=== PATIENT | female | born 1945 | race Caucasian/White ===

== ENCOUNTER 2018-06-28 15:58 | Emergency (ER) | payer MEDICARE | END 2018-06-28 17:59 | disposition home or self-care (01) | LOC: M ED 15:58 | DX: L03.115 Cellulitis of right lower limb (principal); M71.21 Synovial cyst of popliteal space [Baker], right knee; M17.11 Unilateral primary osteoarthritis, right knee; Z86.73 Personal history of transient ischemic attack (TIA), and cerebral infarction without residual deficits; E78.00 Pure hypercholesterolemia, unspecified; I10 Essential (primary) hypertension; Z87.01 Personal history of pneumonia (recurrent); E11.9 Type 2 diabetes mellitus without complications; Z79.82 Long term (current) use of aspirin; Z79.84 Long term (current) use of oral hypoglycemic drugs; Z79.899 Other long term (current) drug therapy; Z88.8 Allergy status to other drugs, medicaments and biological substances; Z88.2 Allergy status to sulfonamides | CPT/HCPCS: 73564 ==

== ENCOUNTER 2018-10-01 09:33 | Day surgery (SDC) | payer MEDICARE ==
[~2018-10-01] VITALS: Ht 154.9 cm; Wt 54.4 kg
[~2018-10-01 09:33] MED LIST: ASPI81TA85 PO; ATEN25TA PO; CLIN150C14 PO; FERR1TAB8 PO; GLUC500T PO; IRON27TA2 PO; LEVO750T13 PO; LISI-542 PO; MOBI4TAB PO; NICO14DI3 TD; PRAV1TAB39 PO; TYLE500T78 PO; VITA100067 PO; VITATAB11 PO
[2018-10-01] MEDS ORDERED: PROPOFOL 200 MG/20 ML VIAL As Ordered ONE (10:28)
[2018-10-01] MEDS ORDERED: LIDOCAINE 2% INJ 100 MG/5 ML SDV (FOR ANES.) As Ordered ONE (11:21)
[2018-10-01] MEDS ORDERED: fentaNYL 100 MCG/2 ML INJECTION (J3010) As Ordered ONE (11:21)
--- NOTE | 2018-10-01 11:52 | ROOR ---
Patient Name: Sherita Michel Procedure Date: 10/01/2018 11:35 AM Date of : 1945 Age: 72 Room: [facility] Gender: Female Note Status: Finalized Procedure: Upper Endoscopy + Biopsies Indications: Functional Dyspepsia Providers: Dick Macdonald MD Referring MD: SIMI MAK DO Requesting Provider: Medicines: Monitored Anesthesia Care Complications: No immediate complications. Procedure: Pre-Anesthesia Assessment: - The heart rate, respiratory rate, oxygen saturations, blood pressure, adequacy of pulmonary ventilation, and response to care were monitored throughout the procedure. The Endoscope was introduced through the mouth, and advanced to the second part of duodenum. The upper GI endoscopy was accomplished without difficulty. The patient tolerated the procedure well. Findings: The Z-line was variable and was found 35 cm from the incisors. Multiple biopsies were obtained with cold forceps for evaluation to rule out Saul's Esophagus randomly at the gastroesophageal junction. No other significant abnormalities were identified in a careful examination of the stomach. The exam of the duodenum was otherwise normal. Impression: - Z-line variable, 35 cm from the incisors. - Multiple biopsies were obtained at the gastroesophageal junction. - The examination was otherwise normal. Recommendation: - Patient has a contact number available for emergencies. The signs and symptoms of potential delayed complications were discussed with the patient. Return to normal activities tomorrow. Written discharge instructions were provided to the patient. - High fiber diet. - Discharge patient to home. - Follow an antireflux regimen. - Continue present medications. - Await pathology results. - Telephone GI clinic for pathology results in 1 week. - Return to referring physician. - The findings and recommendations were discussed with the patient's family. Dick Macdonald MD Dick Macdonald MD 10/01/2018 11:52:23 AM This report has been signed electronically. Number of Addenda: 0 Note Initiated On: 10/01/2018 11:35 AM Estimated Blood Loss: Estimated blood loss: none.
--- NOTE | 2018-10-01 12:08 | ROOR ---
Patient Name: Sherita Michel Procedure Date: 10/01/2018 11:36 AM Date of : 1945 Age: 72 Room: [facility] Gender: Female Note Status: Finalized Procedure: Total Colonoscopy to Cecum Indications: Iron deficiency anemia Providers: Dick Macdonald MD Referring MD: SIMI MAK DO Requesting Provider: Medicines: Monitored Anesthesia Care Complications: No immediate complications. Procedure: Pre-Anesthesia Assessment: - The heart rate, respiratory rate, oxygen saturations, blood pressure, adequacy of pulmonary ventilation, and response to care were monitored throughout the procedure. The Colonoscope was introduced through the anus and advanced to the cecum, identified by appendiceal orifice and ileocecal valve. The colonoscopy was performed without difficulty. The patient tolerated the procedure well. The quality of the bowel preparation was excellent. Findings: The perianal and digital rectal examinations were normal. Non-bleeding internal hemorrhoids were found during retroflexion. The hemorrhoids were small and Grade I (internal hemorrhoids that do not prolapse). Multiple small and large-mouthed diverticula were found in the recto-sigmoid colon, sigmoid colon and descending colon. The exam was otherwise without abnormality on direct and retroflexion views. Impression: - Non-bleeding internal hemorrhoids. - Diverticulosis in the recto-sigmoid colon, in the sigmoid colon and in the descending colon. - The examination was otherwise normal on direct and retroflexion views. - No specimens collected. - The exam was otherwise normal to the cecum. Recommendation: - Patient has a contact number available for emergencies. The signs and symptoms of potential delayed complications were discussed with the patient. Return to normal activities tomorrow. Written discharge instructions were provided to the patient. - High fiber diet. - Discharge patient to home. - Continue present medications. - Repeat colonoscopy for symptoms only. - Return to referring physician. - The findings and recommendations were discussed with the patient's family. Dick Macdonald MD Dick Macdonald MD 10/01/2018 12:07:45 PM This report has been signed electronically. Number of Addenda: 0 Note Initiated On: 10/01/2018 11:36 AM Estimated Blood Loss: Estimated blood loss: none.
[2018-10-01 12:17] VITALS: BP 116/59
== END 2018-10-01 12:45 | disposition home or self-care (01) ==
LOC: M OPP 09:33
PROVIDERS: ATTEND Internal Medicine Gastroenterology
DX: D50.9 Iron deficiency anemia, unspecified (principal); K30 Functional dyspepsia; K64.0 First degree hemorrhoids; K57.30 Diverticulosis of large intestine without perforation or abscess without bleeding; K22.8 Other specified diseases of esophagus; E11.9 Type 2 diabetes mellitus without complications; Z88.1 Allergy status to other antibiotic agents; Z88.2 Allergy status to sulfonamides; Z79.82 Long term (current) use of aspirin; Z79.84 Long term (current) use of oral hypoglycemic drugs; Z79.899 Other long term (current) drug therapy; Z87.891 Personal history of nicotine dependence
CPT/HCPCS: 43239; 45378; 88305; J3010

== ENCOUNTER → 2019-03-07 | Outpatient (REF) | payer MEDICARE ==
[~2019-03-07] MED LIST changes: +ACET500T15 PO; +B-12100011 SL; +CLAR500T PO; +HYDR12CA PO; +LISI-538 PO; +METR-265 PO; +OMEP-218 PO; +RA B1TAB7 PO; +VITAD1000T PO
== END ==
LOC: M LAB REF 14:09
PROVIDERS: ATTEND Internal Medicine Hematology & Oncology
DX: D50.9 Iron deficiency anemia, unspecified (principal)

== ENCOUNTER → 2020-01-22 | Outpatient (CLI) | payer MEDICARE ==
[~2020-01-22] MED LIST changes: +CHOL100029 PO; -CLAR500T PO; +CLAR500T97 PO; -VITAD1000T PO
== END ==
LOC: M LABSMTC 10:22
PROVIDERS: ATTEND Pediatrics
DX: Z03.818 Encounter for observation for suspected exposure to other biological agents ruled out (principal); Z11.59 Encounter for screening for other viral diseases

== ENCOUNTER → 2020-04-30 | Outpatient (CLI) | payer SELFPAY ==
[~2020-04-30] MED LIST changes: -ASPI81TA85 PO; +ASPI81TA86 PO
== END ==
LOC: M LABSMTC 13:56
PROVIDERS: ATTEND Pediatrics
DX: Z20.828 Contact with and (suspected) exposure to other viral communicable diseases (principal)

== ENCOUNTER → 2020-09-12 | Outpatient (CLI) | payer MEDICARE ==
[~2020-09-12] MED LIST changes: +ASPI81TA26 PO; -CLIN150C14 PO; +CLIN150C15 PO; +CRAN400C PO; +CYAN500T14 PO; +D31000TA2 PO; +PRAV10TA3 PO
== END ==
LOC: M LABSMTC 08:07
PROVIDERS: ATTEND Anesthesiology
DX: Z01.812 Encounter for preprocedural laboratory examination (principal); Z20.822 Contact with and (suspected) exposure to COVID-19

== ENCOUNTER 2020-09-17 07:11 | Day surgery (SDC) | payer MEDICARE ==
[~2020-09-17] VITALS: Ht 152.4 cm; Wt 59.9 kg
[~2020-09-17 07:11] MED LIST changes: +BSS IRR 500ML/OMIDRIA 4ML IRR BAG (OR ONLY) As Ordered ONE; +CEFUROXIME 1MG/0.1ML INTRACAMERAL INJ As Ordered ONE; +DUOVISC (0.50ML VISCOAT/0.55ML PROVISC) OPHTH KIT As Ordered ONE; -LISI-538 PO; -LISI-542 PO; +LISI-898 PO; +LISI20TA33 PO; +MIDAZOLAM INJ 2MG/2ML VIAL (J2250 PER 1MG) As Ordered ONE; +OFLOXACIN 0.3 % (OCUFLOX) OPTH SOL 5ML OS ONE; +PHENYLEPHRINE 2.5% OPHTH SOL 2ML OS ONE; +POVIDONE-IODINE 5% OPHTH PREP SOL 30ML As Ordered ONE; +PROPARACAINE 0.5% OPHTH SOL 15ML OS ONE; +TROPICAMIDE 1% OPHTH SOLN 2ML OS ONE; +fentaNYL 100 MCG/2 ML INJECTION (J3010) As Ordered ONE
[2020-09-17] MEDS ORDERED: ONDANSETRON 4MG/2ML VIAL As Ordered ONE (09:06)
[2020-09-17 10:00] VITALS: BP 164/74
[2020-09-17] MEDS ORDERED: PROPARACAINE 0.5% OPHTH SOL 15ML OS PRN (10:30)
--- NOTE | 2020-09-18 10:21 | RO ---
OPERATIVE NOTE DATE OF OPERATION: 09/17/2020 PREOPERATIVE DIAGNOSES: 1. Visually significant nuclear sclerotic cataract, left eye. 2. Small pupil, left eye. POSTOPERATIVE DIAGNOSES: 1. Visually significant nuclear sclerotic cataract, left eye. 2. Small pupil, left eye. PROCEDURE: Complex cataract extraction with use of phacoemulsification, and placement of intraocular lens, AU00T0, 25.5 D , left eye with use of iRing. ANESTHESIA: Local (Omidria) with MAC. COMPLICATIONS: None. POSTOPERATIVE CONDITION: Postoperative Condition: Stable. INDICATION FOR SURGERY: Blurred vision affecting patient's activities of daily living. DESCRIPTION OF PROCEDURE: The patient was seen in the preoperative area and properly identified. The correct operative eye was identified and marked. The patient received topical anesthetic, antibiotics, and topical dilating drops. The patient was then transferred to the operating room. The correct side was re-identified and a timeout was performed. The eye was prepped and draped in a sterile fashion. The eyelids were isolated with Tegaderm tape and the lids were held open with an adjustable speculum. A 1.0mm paracentesis incision was made. Omidria was injected into the anterior chamber. Viscoelastic was then injected into the anterior chamber through the paracentesis. Using a 2.4mm sharp-tipped keratome, the anterior chamber was entered via a temporal clear cornea incision. An iRing was placed within the eye, and positioned onto the iris to expand the pupil. A continuous curvilinear capsulorhexis was created with Utrata forceps. Hydrodissection was performed with BSS on a blunt cannula until the nucleus was able to rotate freely. The crystalline lens was phacoemulsified and aspirated. Irrigation/aspiration was used to remove the cortical material Cohesive viscoelastic was placed into the capsular bag to deepen it. The implant was placed into the capsular bag and allowed to unfold. Placement was confirmed by visualizing the anterior capsulorhexis. Irrigation/aspiration was used to remove the viscoelastic. The iRing was removed from the eye. The clear corneal incision was hydrated with BSS on a blunt cannula. The lens was well positioned. Cefuroxime was injected into the anterior chamber. The incisions were then tested for leaks and found to be negative. The eye was then palpated for appropriate pressure and adjusted accordingly with BSS. The eyelid speculum was then carefully removed. A shield was placed over the eye. The patient tolerated the procedure well and was discharge to the recovery unit in a stable condition.
== END 2020-09-17 10:23 | disposition home or self-care (01) ==
LOC: M SDC 07:11
PROVIDERS: ATTEND Ophthalmology
DX: H25.12 Age-related nuclear cataract, left eye (principal); H57.03 Miosis; I10 Essential (primary) hypertension; E11.9 Type 2 diabetes mellitus without complications; E78.5 Hyperlipidemia, unspecified; G47.00 Insomnia, unspecified; F41.9 Anxiety disorder, unspecified; I69.998 Other sequelae following unspecified cerebrovascular disease; T88.59XD Other complications of anesthesia, subsequent encounter; Z78.0 Asymptomatic menopausal state; Z79.82 Long term (current) use of aspirin; Z79.899 Other long term (current) drug therapy; Z86.2 Personal history of diseases of the blood and blood-forming organs and certain disorders involving the immune mechanism; Z87.440 Personal history of urinary (tract) infections; Z87.891 Personal history of nicotine dependence; Z88.1 Allergy status to other antibiotic agents; Z88.2 Allergy status to sulfonamides; Z98.51 Tubal ligation status
CPT/HCPCS: 66982; J1097; J2250; J2405; J3010; V2632

== ENCOUNTER → 2020-09-23 | Outpatient (CLI) | payer MEDICARE ==
[~2020-09-23] MED LIST changes: -BSS IRR 500ML/OMIDRIA 4ML IRR BAG (OR ONLY) As Ordered ONE; -CEFUROXIME 1MG/0.1ML INTRACAMERAL INJ As Ordered ONE; -DUOVISC (0.50ML VISCOAT/0.55ML PROVISC) OPHTH KIT As Ordered ONE; -MIDAZOLAM INJ 2MG/2ML VIAL (J2250 PER 1MG) As Ordered ONE; -OFLOXACIN 0.3 % (OCUFLOX) OPTH SOL 5ML OS ONE; -PHENYLEPHRINE 2.5% OPHTH SOL 2ML OS ONE; -POVIDONE-IODINE 5% OPHTH PREP SOL 30ML As Ordered ONE; -PROPARACAINE 0.5% OPHTH SOL 15ML OS ONE; -TROPICAMIDE 1% OPHTH SOLN 2ML OS ONE; -fentaNYL 100 MCG/2 ML INJECTION (J3010) As Ordered ONE
== END ==
LOC: M LABSMTC 13:23
PROVIDERS: ATTEND Anesthesiology
DX: Z01.812 Encounter for preprocedural laboratory examination (principal); Z20.822 Contact with and (suspected) exposure to COVID-19

== ENCOUNTER 2020-09-24 07:27 | Day surgery (SDC) | payer MEDICARE ==
[~2020-09-24] VITALS: Ht 152.4 cm; Wt 59.0 kg
[~2020-09-24 07:27] MED LIST changes: +ACETAMINOPHEN 325 MG TAB PO PRN; +CEFUROXIME 1MG/0.1ML INTRACAMERAL INJ As Ordered ONE; +DUOVISC (0.50ML VISCOAT/0.55ML PROVISC) OPHTH KIT As Ordered ONE; +MIDAZOLAM INJ 2MG/2ML VIAL (J2250 PER 1MG) As Ordered ONE; +OFLOXACIN 0.3 % (OCUFLOX) OPTH SOL 5ML OD ONE; +PHENYLEPHRINE 2.5% OPHTH SOL 2ML OD ONE; +POVIDONE-IODINE 5% OPHTH PREP SOL 30ML As Ordered ONE; +PROPARACAINE 0.5% OPHTH SOL 15ML OD ONE; +PROPARACAINE 0.5% OPHTH SOL 15ML OD PRN; +TROPICAMIDE 1% OPHTH SOLN 2ML OD ONE; +fentaNYL 100 MCG/2 ML INJECTION (J3010) As Ordered ONE
--- OUTSIDE RECORDS SUMMARY | 2020-09-24 07:31 | CCD ---
Author Author Demetris Ware MD [facility] Organization Demetris Ware MD [facility] Address [address] [address] Phone Care Team Providers Care Car Sander Name Role Phone Jeanie ALANIZ, Demetris HINKLE Unavailable [phone] Reason for Referral No Reason for Referral Recorded Problems Includes: Active, inactive, and resolved Problems All Visits Onset Date - Time Resolved Date - Time Provider Co ndition Status Adhesions of Iris Posterior Synechiae 07/20/2020 - 12:00AM Christian Macdonald DO Active Taking Medication For Diabetes Long-term Use of Oral H ypoglycemics 06/22/2020 - 12:00AM Demetris Ware MD, FACS Active Diabetes Mellitus Type 2 Without Complication 06/22/2020 - 12:00 AM Demetris Ware MD, FACS Active History of Nicotine Dependence 06/22/2020 - 12:00AM Demetris Ware MD, FACS Active Essential Hypertension 06/22/2020 - 12:00AM Demetris Hamilotn MD, FACS Active Retinopathy Hypertensive Both Eyes 06/22/2020 - 12:00AM Demetris Ware MD, FACS Active Cataract Senile Nuclear 06/22/2020 - 12:00AM Demetris Ware MD, FACS Active Dry Eye Syndrome Both Eyes 06/22/2020 - 12:00AM Demetris Ware MD, FACS Active Vitreous Disorders Degeneration 06/22/2020 - 12:00AM Demetris Ware MD, FACS Active Plan of Treatment Referrals To Diagnosis Referral to Dr. Renae Ware MD, FACS Type 2 diabetes mellitus without complications Future Appointments Date Time Location Provider Extracapsular cataract removal w/IOL implant 09/24/2020 8:2 0AM [facility] Christian Macdonald DO 1 Week Post OP 10/02/2020 12:40PM Demetris Ware MD [facility] Angel Macdonald DO Findings Encounter Date Requested Referred to: Dr. Macdonald NEW PATIENT WITH REFERRAL with Demetris Ware MD, FACS 06/22/2020 Assessments Includes: Assessments for all patient encounters Findings Encounter Date Nuclear senile cataract POST OP VISIT WITH PRE-OP with Tim Macdonald DO 09/18/2020 Pseudophakia POST OP VISIT WITH PRE-OP with Christian benitez DO 09/18/2020 Nuclear senile cataract 1 WK PREOP FOR SURGERY with Christian Macdonald DO 09/04/2020 Adhesions of the posterior synechiae of the iris Catar act Evaluation with Christian Macdonald DO 07/20/2020 Dry eye syndrome of both eyes Cataract Evaluation with Tim Macdonald DO 07/20/2020 Long-term use of oral hypoglycemics Cataract Evaluatio n with Christian Macdonald DO 07/20/2020 Nuclear senile cataract Cataract Evaluation with Christian haynes DO 07/20/2020 Type 2 diabetes mellitus without complication Cataract Evaluation with Christian Macdonald DO 07/20/2020 Vitreous degeneration Cataract Evaluation with Christian may DO 07/20/2020 Dry eye syndrome of both eyes NEW PATIENT WITH REFERRA L with Demetris Ware MD, FACS 06/22/2020 Essential hypertension NEW PATIENT WITH REFERRAL [facility] Demetris Ware MD, FACS 06/22/2020 History of nicotine dependence NEW PATIENT WITH REFERR AL with Demetris Raymundo MD, FACS 06/22/2020 Long-term use of oral hypoglycemics NEW PATIENT WITH R EFERRAL with Demetris Ware MD, FACS 06/22/2020 Nuclear senile cataract NEW PATIENT WITH REFERRAL [facility] Demetris Ware MD, FACS 06/22/2020 Type 2 diabetes mellitus without complication NEW PRIETO ENT WITH REFERRAL with Demetris Ware MD, FACS 06/22/2020 Vitreous degeneration NEW PATIENT WITH REFERRAL [facility] Demetris Ware MD, FACS 06/22/2020 Instructions Instructions not supported for this document typeNo Instructions Recorded Medical Equipment - Implanted Devices Includes: Current and historical DevicesNo Medical Equipment Recorded Medications Includes: Current and historical Medications Current Medications (continue as prescribed) Moxifloxacin HCl 0.5% Ophthalmic Solution 09/04/2020 Provider: Christian Macdonald DO Diagnosis: Age-related nuclear cataract, left eye Three days prior to surgery start one drop four times a day in the left eye BromSite 0.075% Ophthalmic Solution 09/04/2020 Prov ider: Christian Renae ARROYO Diagnosis: Age-related nuclear cataract, left eye Three days prior to surgery start one dr op two times a day in the left eye, RUN CARD. SEE PHARM NOTES Inveltys 1% Ophthalmic Suspension 09/04/2020 Provid er: Christian Macdonald Diagnosis: Age-related nuclear cataract, left eye Day of surgery remove patch start one dr op two times a day in the left eye, RUN CARD. SEE PHARM NOTES metFORMIN HCl 500 MG Oral Tablet 06/22/2020 Provide r: Diagnosis: Lisinopril 40 MG Oral Tablet 06/22/2020 Provider: Diagnosis: Atenolol 25 MG Oral Tablet 06/22/2020 Provider: Diagnosis: Pravastatin Sodium 10 MG Oral Tablet 06/22/2020 Pro vider: Diagnosis: Adult Aspirin Regimen 81 MG Oral Tablet Delayed Release 04/2020 Provider: Diagnosis: Vitamin B12 500 MCG Oral Tablet 06/22/2020 Provider : Diagnosis: Vitamin D3 1000 MG Oral Tablet 06/22/2020 Provider: Diagnosis: Medications Administered Includes: Administered Medications in patient's chartNo Administered Medications Recorded Vital Signs Includes: Vital Signs from 09/18/2019 through 09/18/2020No Vital Signs Recorded For Specified Dates Results Includes: Results from 09/18/2019 through 09/18/2020No Results Recorded For Specified Dates History of Present Illness History of Present Illness not supported for this document typeNo History of Present Illness Recorded Social History Description Last Updated No tobacco use 07/20/2020 Not using drugs 07/20/2020 Previous smoking history 07/20/2020 Smoking status : Former smoker 07/20/2020 Wine consumption 07/20/2020 Procedures and Surgical History Includes: Procedures from 09/18/2019 through 09/18/2020 Procedures Code Diagnosis Performing Provider Service Location Service Date Ophthalmic biometry - IOL Master with IOL calculation (RT, 2 6) 56831 Age-related nuclear cataract, right eye Christian Macdonald DO 09/18/2020 Intermediate Eye Exam Established Patient (Signi/Sep Eval. 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, Dry eye syndrome of bilateral lacrimal glands, Age-related nuclear cataract, bilateral Demetris Ware MD, FACS Demetris Ware MD [facility] 06/22/2020 Surgical History Last Updated Surgical / procedural history Termination 1984, Tubal Ligation 1984, Fatty Tumor removal 2017, 07/20/2020 Medical History Includes: Medical History in patient's chart Description Last Updated History of the retina was normal 06/22/2020 07/20/2020 Reported medical history Osteochondropathy, Anxiety, Insomnia 07/20/2020 History of hyperlipidemia 07/20/2020 No recent change in medical history 07/20/2020 Currently wearing eyeglasses 07/20/2020 History of diabetes mellitus Type II Di abetes DX: 2012. A1c:6.5 FBS: 127 this morning 07/20/2020 History of hypertension 07/20/2020 Family History Includes: Family History in patient's chart Description Last Updated Maternal history of arthritis 07/20/2020 Maternal history of blindness 07/20/2020 Maternal history of cataract 07/20/2020 Maternal history of diabetes mellitus 07/20/2020 Maternal history of family history of cancer 0 Maternal history of glaucoma 07/20/2020 Maternal history of heart disease 07/20/2020 Maternal history of hypertension 07/20/2020 Maternal history of macular degeneration 07/20/2020 Sororal history of hypertension 07/20/2020 Review of Systems Review of Systems not supported for this document typeNo Review of Systems Recorded Mental Status Mental Status not supported for this document type Description Oriented to time, place, and person Anxiety Functional Status Functional Status not supported for this document typeNo Functional Status Recorded Physical Exam Physical Exam not supported for this document typeNo Physical Exam Recorded Immunizations Includes: Immunizations in patient's chartNo Immunizations Recorded Allergies Includes: Active, inactive, and resolved Allergies Substance Type Reaction Onset Date - Time Resolved Date - Ti me Status Sulfa Antibiotics Allergy 06/22/2020 - 1:39PM Active Levaquin Allergy 06/22/2020 - 1:39PM Activ e Clindamycin HCl Allergy 06/22/2020 - 1:40PM Active Encounters Includes: Encounters from 09/18/2019 through 09/18/2020 Encounter Provider Location Date Check-In Time Check-Out Time D iagnosis POST OP VISIT WITH PRE-OP Christian Pitt MD [facility] 09/18/2020 12:32PM 09/17/2020 11:59PM Cataract Senile Nucl ear, Pseudophakia Extracapsular cataract removal w/IOL implant Christian Gonzalez in DO [facility] 09/17/2020 7:03AM 7:04AM 1 WK PREOP FOR SURGERY Christian Pitt MD [facility] 09/04/2020 12:27PM 1:36PM Cataract Senile Nuclear Cataract Evaluation Christian Pitt MD [facility] 1 09/20/2019 1:57PM 3:49PM Dry Eye Syndrome Both Eyes, Vitreous Disorders Degeneration, Diabetes Mellitus Type 2 Without Complication, Taking Medication For Diabetes Long-term Use of Oral Hypoglycemics, Cataract Senile Nuclear, Adhesions of Iris Posterior Synechiae NEW PATIENT WITH REFERRAL Demetris Ware MD, FACS Demetris Santana MD [facility] 06/22/2020 1:33PM 3:03PM Taking Medication Fo r Diabetes Long-term Use of Oral Hypoglycemics, Diabetes Mellitus Type 2 Without Complication, Cataract Senile Nuclear, Dry Eye Syndrome Both Eyes, Essential Hypertension, Vitreous Disorders Degeneration, History of Nicotine Dependence Insurance Includes: Active Insurance Policies Plan Name Member ID Group # Subscriber Relationship Effective Da karen 1 - [employer] [id number] Sherita Michel Self Advance Directives Includes: Current Advance DirectivesNo Advance Directives Recorded Health Concerns Includes: Active Health ConcernsNo Active Health Concerns Recorded Goals Includes: Active GoalsNo Active Goals Recorded Interventions Includes: Interventions for active GoalsNo Interventions Recorded Evaluations & Outcomes Includes: Evaluations & Outcomes for active GoalsNo Outcomes Recorded
--- OUTSIDE RECORDS SUMMARY | 2020-09-24 07:32 | CCD ---
Author Author Demetris Ware MD [facility] Organization Demetris Ware MD [facility] Address [address] [address] Phone Care Team Providers Care Agricultural Aircraft Pilot Name Role Phone Jeanie ALANIZ, Demetris HINKLE Unavailable [phone] Reason for Referral No Reason for Referral [...] Active Essential Hypertension 06/22/2020 - 12:00AM Demetris Hamilton MD, FACS Active Retinopathy Hypertensive Both Eyes 06/22/2020 - 12:00AM Demetris Ware MD, FACS Active Cataract Senile Nuclear 06/22/2020 - 12:00AM Demetris Ware MD, FACS Active Dry Eye Syndrome Both Eyes 06/22/2020 - 12:00AM Demetris Ware MD, FACS Active Vitreous Disorders Degeneration 06/22/2020 - 12:00AM Demetris Ware MD, FACS Active Plan of Treatment Pending Tests Order Diagnosis Results Due Ordering Provi antoine Testing Ordered - AScan A-Scan IOL Master Age-related nucl ear cataract, bilateral 09/18/20 Christian Macdonald DO Referrals To Diagnosis Referral to Dr. Renae Ware MD, FACS Type 2 diabetes mellitus without complications Findings Encounter Date Requested Referred to: Dr. Macdonald NEW PATIENT WITH REFERRAL with Demetris aWre MD, FACS 06/22/2020 Assessments Includes: Assessments for all patient encounters Findings Encounter Date Adhesions of the posterior synechiae of the iris Catar act Evaluation with Christian Macdonald DO 07/20/2020 Dry eye syndrome of both eyes Cataract Evaluation with Tim tiana Renae DO 07/20/2020 Long-term use of oral hypoglycemics Cataract Evaluatio n with Christian Macdonald DO 07/20/2020 Nuclear senile cataract Cataract Evaluation with Christian haynes DO 07/20/2020 Type 2 diabetes mellitus without complication Cataract Evaluation with Christian Macdonald DO 07/20/2020 Vitreous degeneration Cataract Evaluation with Christian amy DO 07/20/2020 Dry eye syndrome of both eyes NEW PATIENT WITH REFERRA L with Demetris Ware MD, FACS 06/22/2020 Essential hypertension NEW PATIENT WITH REFERRAL [facility] Demetris Ware MD, FACS 06/22/2020 History of nicotine dependence NEW PATIENT WITH REFERR AL with Demetris Raymundo MD, FACS 06/22/2020 Long-term use of oral hypoglycemics NEW PATIENT WITH R EFERRAL with Demetris Ware MD, FACS 06/22/2020 Nuclear senile cataract NEW PATIENT WITH REFERRAL [facility] Demetris Ware MD, FACS 06/22/2020 Type 2 diabetes mellitus without complication NEW PRIETO ENT WITH REFERRAL with Demetris Ware MD, FACS 06/22/2020 Vitreous degeneration NEW PATIENT WITH REFERRAL [facility] Demetris Ware MD, FACS 06/22/2020 Instructions Instructions not supported for this document typeNo Instructions Recorded Medical Equipment - Implanted Devices Includes: Current and historical DevicesNo Medical Equipment Recorded Medications Includes: Current and historical Medications Current Medications (continue as prescribed) metFORMIN HCl 500 MG Oral Tablet 06/22/2020 [...] Recorded Vital Signs Includes: Vital Signs from 07/20/2019 through 07/20/2020No Vital Signs Recorded For Specified Dates Results Includes: Results from 07/20/2019 through 07/20/2020No Results Recorded For Specified Dates History of Present Illness History of Present Illness not supported for this document typeNo History of Present Illness Recorded Social History Description Last Updated No tobacco use 07/20/2020 Not using drugs 07/20/2020 Previous smoking history 07/20/2020 Smoking status : Former smoker 07/20/2020 Wine consumption 07/20/2020 Procedures and Surgical History Includes: Procedures from 07/20/2019 through 07/20/2020 Procedures Code Diagnosis Performing Provider Service Location Service Date Intermediate Eye Exam Established Patient [id number] Age-related nuclear cataract, bilateral, ADHESIONS OF IRIS POSTERIOR SYNECHIAE Christian Macdonald DO 07/20/2020 Medical Eye Exam 19779 Type 2 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, 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, Dry eye syndrome of bilateral lacrimal glands, Age-related nuclear cataract, bilateral Demetris Ware MD, FACS Demetris Ware MD [facility] 06/22/2020 Surgical History Last Updated Surgical [...] Description Oriented to time, place, and person Difficulty reading Anxiety Functional Status Functional Status not supported [...] - 1:40PM Active Encounters Includes: Encounters from 07/20/2019 through 07/20/2020 Encounter Provider Location Date Check-In Time Check-Out Time D iagnosis Cataract Evaluation Christian Pitt MD [facility] 1 09/20/2019 1:57PM 3:49PM Dry Eye Syndrome Both Eyes, Vitreous Disorders Degeneration, Diabetes Mellitus Type 2 Without Complication, Taking Medication For Diabetes Long-term Use of Oral Hypoglycemics, Cataract Senile Nuclear, Adhesions of Iris Posterior Synechiae NEW PATIENT WITH REFERRAL Demetris Ware MD, FACS Demetris Santana MD [facility] 06/22/2020 1:33PM 3:03PM Taking Medication Fo r Diabetes Long-term Use of Oral Hypoglycemics, Diabetes Mellitus Type 2 Without Complication, Cataract Senile Nuclear, Dry Eye Syndrome Both Eyes, Essential Hypertension, Vitreous Disorders Degeneration, History of Nicotine Dependence Insurance Includes: Active Insurance Policies Plan Name Member ID Group # Subscriber Relationship Effective Da karen 1 - [employer] [id number] Sherita Michel Self Advance Directives Includes: Current Advance DirectivesNo Advance Directives Recorded Health Concerns Includes: Active Health ConcernsNo Active Health Concerns Recorded Goals Includes: Active GoalsNo Active Goals Recorded Interventions Includes: Interventions for active GoalsNo Interventions Recorded Evaluations & Outcomes Includes: Evaluations & Outcomes for active GoalsNo Outcomes Recorded
--- OUTSIDE RECORDS SUMMARY | 2020-09-24 07:32 | CCD | Continuity of Care Document ---
Author Author Sherita MAK D.O. Organization Unknown Address 3 [facility] 3 [place] [address] Phone [phone] Problems Active Problems Provider Date Benign essential hypertension Aidan Mak D.O., SHARRI O nset: 07/18/2011 Vitamin D deficiency Aidan Mak D.O., LOISFP Onset: 12/2010 Hyperlipidemia Aidan Mak D.O., SHARRI Onset: 09/2011 Type 2 diabetes mellitus Aidan Mak D.O., LOISFP Onset: 02/21/2012 Osteochondropathy Aidan Mak D.O., FAAFP Onset: 03/2013 Essential hypertension Aidan Mak D.O., FAAFP Onset: 1 10/04/2014 Type 2 diabetes mellitus Aidan Mak D.O., FAAFP Onset: 06/09/2020 Social History Type Date Description Comments Sex Unknown ETOH Use Drinks 1 wine or 1 Beer per day Recreational Drug Use Denies Drug Use Tobacco Use Start: Unknown End: Unknown Patient is a former smoker Quit 2013 Smoking Status Reviewed: 09/08/20 Patient is a former smoker Qu it 2014 Allergies, Adverse Reactions, Alerts Active Allergies Reaction Severity Comments Date Sulfa Drugs itching Moderate itching all over her body Levaquin Urticaria Moderate rash over entire body 2013 Clindamycin SOB Moderate not tolerated, s hortness of breath shortly after taking. 07/03/2018 Medications Active Medications SIG Qnty Indications Ordering Provide r Date Pravastatin Sodium 10mg Tablets 1 by mouth every day 90tabs Aidan Mak D.O., FAAFP Metformin HCL 500mg Tablets 1 by mouth twice every day 180tabs [facility] Ultra 2 w/Device Kit test blood sugar every day dx e11.9 1units E11.9 [facility] 04/08/2019 Lisinopril 40mg Tablets 1 by mouth every day 90tabs [facility] Vitamin C 500mg Tablets 1 by mouth daily with a meal 100tabs [facility] Atenolol 25mg Tablets take one tablet by mouth every day 90tabs [facility] 07/2018 Onetouch Delica Lancets Extra Fine 33G Misc Use To Check Glucose Twice Daily And as Needed 200units E11.9 [facility] 11/10/2015 Onetouch Ultra Blue Strips Test Twice Daily 200units [facility] One Touch Test Strips test blood glucose twice a day 200units E 11.9 Daiana Watson, [facility]- 04/17/2013 Vit D 2000 Capsules 1 qd 100caps [facility] 11/14/[address] 1 by mouth every day OTC Unknown Vitamin B-12 500mcg Tablets Sub 1 by mouth every day Unknown History Medications Doxycycline Hyclate 100mg Tablets 1 by mouth twice a day x 10 days 20tabs Josemanuel Arvizu, FAAFP 05/20/2020 - 05/20/2020 Cephalexin 500mg Capsules 1 tab by mouth three times a day for 10 days 30caps [facility] 05/20/2020 - 06/09/2020 Keflex 500mg Capsules 1 by mouth three times a day x 7 days 21caps Aidan Mak D.O., [facility] 04/06/2020 - 05/20/2020 Medications Administered in Office Medication SIG Qnty Indications Ordering Provider Date Injection (SC)/(Im) Injection Aidan Mak D.O., [facility] 05/22/2012 Injection (SC)/(Im) Injection Adian Mak D.O., [facility] 08/02/2011 Injection (SC)/(Im) Injection Aidan Mak D.O., [facility] 07/18/2011 Immunizations CPT Code Status Date Vaccine Lot # [id number] Given 06/09/2020 Influenza Virus Vaccine, Quadrivalent, Slit Virus, Im Use 3Y & Up [id number] 80300 Given 07/01/2019 Influenza Virus Vaccine, Quadrivalent, Slit Virus, Im Use 3Y & Up [id number] 20675 Given 04/24/2018 Influenza Virus Vaccine, Quadrivalent, Slit Virus, Im Use 3Y & Up [id number] 31284 Given 04/24/2017 Influenza Virus Vaccine, Quadrivalent, Slit Virus, Im Use 3Y & Up [id number] 64258 Given 04/26/2016 Influenza Vaccin e (Fluzone) 3Yrs Of Age Or Older Medicare Plans [id number] 37821 Given 08/03/2015 Influenza Vaccin e (Fluzone) 3Yrs Of Age Or Older Medicare Plans [id number] Q2037 Given 05/19/2014 Influenza Vaccin e (Fluvirin) 3Yrs Of Age Or Older Medicare Plans [id number] 79218 Given 06/10/2013 Influenza Vaccin e (Fluzone) 3Yrs Of Age Or Older Medicare Plans [id number] Given 06/10/2013 Influenza Virus Vac. Split Virus Individuals 3 Years And Above [id number] 29804 Given 05/22/2012 Influenza Vaccin e (Fluzone) 3Yrs Of Age Or Older Medicare Plans 93299 Given 05/22/2012 Influenza Virus Vac. Split Virus Individuals 3 Years And Above [id number] 04864 Given 08/02/2011 Pneumococcal Immunization [id number] 29548 Given 07/18/2011 Influenza Vaccin e (Fluzone) 3Yrs Of Age Or Older Medicare Plans 59264 Given 07/18/2011 Influenza Virus Vac. Split Virus Individuals 3 Years And Above [id number] Vital Signs Date Vital Result Comment 09/08/2020 1:09pm BP Systolic 128 mmHg BP Diastolic 78 mmHg Body Temperature 98.0 F Heart Rate 76 /min Respiratory Rate 16 /min Height 60 inches 5'0" Weight 130.00 lb [place] Body Weight 100 lb BMI (Body Mass Index) 25.4 kg/m2 O2 % BldC Oximetry 97 % 06/09/2020 1:55pm BP Systolic 128 mmHg BP Diastolic 76 mmHg Body Temperature 97.6 F Heart Rate 70 /min Respiratory Rate 16 /min Height 60 inches 5'0" Weight 130.00 lb [place] Body Weight 100 lb BMI (Body Mass Index) 25.4 kg/m2 O2 % BldC Oximetry 98 % Results Test Acquired Date Facility Test Result H/L Range Note Laboratory test finding 09/08/2020 [facility] [place] Creatine Kinase, Total <pending> CBC With Differential/Platelet 06/09/2020 [facility] E WBC 4.7 x10E3/uL 3.4-10.8 RBC 3.75 x10E6/uL Low 3.77-5.28 Hemoglobin 11.1 g/dL 11.1-15.9 Hematocrit 33.7 % Low 34.0-46.6 MCV 90 fL 79-97 MCH 29.6 pg 26.6-33.0 MCHC 32.9 g/dL 31.5-35.7 RDW 12.0 % 11.7-15.4 Platelets 317 x10E3/uL 150-450 Neutrophils 60 % Not Estab. Lymphs 31 % Not Estab. Monocytes 7 % Not Estab. Eos 1 % Not Estab. Basos 1 % Not Estab. Immature Cells TNP Neutrophils (Absolute) 2.8 x10E3/uL 1.4-7.0 Lymphs (Absolute) 1.5 x10E3/uL 0.7-3.1 Monocytes(Absolute) 0.4 x10E3/uL 0.1-0.9 Eos (Absolute) 0.0 x10E3/uL 0.0-0.4 Baso (Absolute) 0.0 x10E3/uL 0.0-0.2 Immature Granulocytes 0 % Not Estab. Immature Grans (Abs) 0.0 x10E3/uL 0.0-0.1 NRBC TNP Hematology Comments: TNP Hemoglobin A1c 06/09/2020 [facility] Hemoglobin A1c 6.3 % High 4.8-5.6 1 Urinalysis, Complete 06/09/2020 [facility] Specific [place] 1.016 1.005-1.030 pH 5.5 5.0-7.5 Urine-Color Yellow Yellow Appearance Clear Clear WBC Esterase Negative Negative Protein Negative Negative/Trace Glucose Negative Negative Ketones Negative Negative Occult Blood Negative Negative Bilirubin Negative Negative Urobilinogen,Semi-Qn 0.2 mg/dL 0.2-1.0 Nitrite, Urine Negative Negative Microscopic Examination See Comment: 2 Microscopic Examination See below: WBC 0-5 /hpf 0 - 5 RBC None seen /hpf 0 - 2 Epithelial Cells (non renal) 0-10 /hpf 0 - 10 Epithelial Cells (renal) TNP Casts TNP Cast Type TNP Crystals TNP Crystal Type TNP Mucus Threads Present Not Estab. Bacteria None seen None seen/Few Yeast TNP Trichomonas TNP Comment TNP Laboratory test finding 06/09/2020 [facility] Creatine Kinase,Total 58 U/L 32-182 Lipid Panel 06/09/2020 [facility] Cholesterol, Total 209 mg/dL High 100-199 Triglycerides 87 mg/dL 0-149 HDL Cholesterol 86 mg/dL >39 VLDL Cholesterol Arnaldo 15 mg/dL 5-40 LDL Chol Calc (Nih) 108 mg/dL High 0-99 Comment: TNP Metabolic Panel (14), Comprehensive 06/09/2020 [facility] Glucose 99 mg/dL 65-99 BUN 15 mg/dL 8-27 Creatinine 0.55 mg/dL Low 0.57-1.00 eGFR If NonAfricn Am 92 mL/min/1.73 >59 eGFR If Africn Am 106 mL/min/1.73 >59 BUN/Creatinine Ratio 27 12-28 Sodium 141 mmol/L 134-144 Potassium 4.4 mmol/L 3.5-5.2 Chloride 103 mmol/L 96-106 Carbon Dioxide, Total 26 mmol/L 20-29 Calcium 9.6 mg/dL 8.7-10.3 Protein, Total 6.6 g/dL 6.0-8.5 Albumin 4.5 g/dL 3.7-4.7 Globulin, Total 2.1 g/dL 1.5-4.5 A/G Ratio 2.1 1.2-2.2 Bilirubin, Total 0.2 mg/dL 0.0-1.2 Alkaline Phosphatase 64 IU/L 39-117 Ast (Sgot) 14 IU/L 0-40 Alt (SGPT) 9 IU/L 0-32 Urine Culture, Routine 05/20/2020 [facility] Urine Culture, Routine Final report 3, 4 Result 1 See Comment: 5 U/A DIP 05/20/2020 [facility]/Inhouse Color yellow QUAL Clarity slightly hazy QUAL Glucose-Ua Negative g/dL Negative Bilirubin,Urine Negative QUAL Negative Ketone Trace mg/dL Abnormal Negative Specific [place] 1.025 # 1.000 - 1.030 Blood - Ua Trace-lysed QUAL Abnormal Negative pH 5.5 # 5.0 - 8.0 Protein 30 mg/dL Abnormal Negative Urobilinogen 0.2 NA 0.2 - 1.0 Nitrite Negative QUAL Negative Leukocyte Small QUAL Abnormal Negative RBC-Ua 0-4/HPF # Abnormal 0 - 3 Epithelial Cells - Ua 0-4/HPF QUAL Bacteria - Ua moderate QUAL Abnormal Negative WBC-Ua 10-20/HPF #/HPF Abnormal 0 - 5 Casts RARE CELLULAR QUAL Comment [facility]CS SENT OUT NA Coronavirus 2019 ([facility]) 04/30/2020 [facility]) [phone] Coronavirus 2018 ([facility]) <SEE NOTE> 6 Urine Culture, Routine 04/06/2020 [facility] Urine Culture, Routine Final report 7, 8 Result 1 No growth 9 U/A DIP 04/06/2020 [facility]Inhouse Color yellow QUAL Clarity cloudy QUAL Glucose-Ua Negative g/dL Negative Bilirubin,Urine Small QUAL Abnormal Negative Ketone Negative mg/dL Negative Specific [place] 1.010 # 1.000 - 1.030 Blood - Ua Moderate QUAL Abnormal Negative pH 6.0 # 5.0 - 8.0 Protein 100 mg/dL Abnormal Negative Urobilinogen 0.2 NA 0.2 - 1.0 Nitrite Negative QUAL Negative Leukocyte Large QUAL Abnormal Negative RBC-Ua 5-10/HPF # Abnormal 0 - 3 Epithelial Cells - Ua 3-5/LPF QUAL Bacteria - Ua moderate QUAL Abnormal Negative WBC-Ua >100/HPF #/HPF Abnormal 0 - 5 Crystals RARE QUAL Comment [facility]CS SENT OUT NA CBC With Differential/Platelet 03/10/2020 [facility] E WBC 5.1 x10E3/uL 3.4-10.8 RBC 3.72 x10E6/uL Low 3.77-5.28 Hemoglobin 11.5 g/dL 11.1-15.9 Hematocrit 33.2 % Low 34.0-46.6 MCV 89 fL 79-97 MCH 30.9 pg 26.6-33.0 MCHC 34.6 g/dL 31.5-35.7 RDW 12.6 % 11.7-15.4 Platelets 297 x10E3/uL 150-450 Neutrophils 62 % Not Estab. Lymphs 26 % Not Estab. Monocytes 10 % Not Estab. Eos 1 % Not Estab. Basos 1 % Not Estab. Immature Cells TNP Neutrophils (Absolute) 3.2 x10E3/uL 1.4-7.0 Lymphs (Absolute) 1.4 x10E3/uL 0.7-3.1 Monocytes(Absolute) 0.5 x10E3/uL 0.1-0.9 Eos (Absolute) 0.1 x10E3/uL 0.0-0.4 Baso (Absolute) 0.0 x10E3/uL 0.0-0.2 Immature Granulocytes 0 % Not Estab. Immature Grans (Abs) 0.0 x10E3/uL 0.0-0.1 NRBC TNP Hematology Comments: TNP Metabolic Panel (14), Comprehensive 03/10/2020 [facility] Glucose 93 mg/dL 65-99 BUN 19 mg/dL 8-27 Creatinine 0.79 mg/dL 0.57-1.00 eGFR If NonAfricn Am 73 mL/min/1.73 >59 eGFR If Africn Am 85 mL/min/1.73 >59 BUN/Creatinine Ratio 24 12-28 Sodium 142 mmol/L 134-144 Potassium 4.8 mmol/L 3.5-5.2 Chloride 104 mmol/L 96-106 Carbon Dioxide, Total 23 mmol/L 20-29 Calcium 9.3 mg/dL 8.7-10.3 Protein, Total 6.6 g/dL 6.0-8.5 Albumin 4.5 g/dL 3.7-4.7 Globulin, Total 2.1 g/dL 1.5-4.5 A/G Ratio 2.1 1.2-2.2 Bilirubin, Total <0.2 mg/dL 0.0-1.2 Alkaline Phosphatase 69 IU/L 39-117 Ast (Sgot) 13 IU/L 0-40 Alt (SGPT) 9 IU/L 0-32 Lipid Panel 03/10/2020 [facility] Cholesterol, Total 258 mg/dL High 100-199 Triglycerides 164 mg/dL High 0-149 HDL Cholesterol 83 mg/dL >39 VLDL Cholesterol Arnaldo 33 mg/dL 5-40 LDL Cholesterol Calc 142 mg/dL High 0-99 Comment: TNP Laboratory test finding 03/10/2020 [facility] Creatine Kinase,Total 45 U/L 32-182 10 Hemoglobin A1c 03/10/2020 [facility] Hemoglobin A1c 6.4 % High 4.8-5.6 11 Urinalysis, Complete 03/10/2020 [facility] Specific [place] 1.016 1.005-1.030 pH 5.5 5.0-7.5 Urine-Color Yellow Yellow Appearance Clear Clear WBC Esterase Negative Negative Protein Negative Negative/Trace Glucose Negative Negative Ketones Negative Negative Occult Blood Negative Negative Bilirubin Negative Negative Urobilinogen,Semi-Qn 0.2 mg/dL 0.2-1.0 Nitrite, Urine Negative Negative Microscopic Examination See Comment: 12 Microscopic Examination See below: WBC 0-5 /hpf 0 - 5 RBC None seen /hpf 0 - 2 Epithelial Cells (non renal) 0-10 /hpf 0 - 10 Epithelial Cells (renal) TNP Casts TNP Cast Type TNP Crystals TNP Crystal Type TNP Mucus Threads Present Not Estab. Bacteria None seen None seen/Few Yeast TNP Trichomonas TNP Comment TNP 1 Prediabetes: 5.7 - 6.4 Diabetes: >6.4 Glycemic control for adults with diabetes: <7.0 2 Microscopic follows if indic ated. 3 SRC:VOIDED 4 Source of Specimen: VOIDED 5 Source of Specimen: VOIDED Culture shows less than 10,000 colony forming units of bacteria per milliliter of urine. This colony count is not generally considered to be clinically significant. 6 Test: COVID-19 Nasal/Naspharynx Result: NOT DETECTED Reference Units: Not detected Note: Please consider re-collection of a new specimen, if clinically indicated. Note: The COVID-19 assay has been FDA cleared by the U.S. Food and Drug Administration under the Emergency Use Authorization (EUA). [facility] is designated as a high complexity laboratory by the Clinical Laboratory Improvement Amendments of 1988 (CLIA) and is qualified to perform this test. ASSAY INFORMATION: [id number]. Patient samples for this assay have been pooled. All positive samples have been individually repeated for confirmation. The pooling protocol is pending FDA review. 7 SRC:UA VOIDED 8 Source of Specimen: UA VOIDE D 9 Source of Specimen: UA VOIDE D 10 Please note reference inte rval change 11 Prediabetes: 5.7 - 6.4 Diabetes: >6.4 Glycemic control for adults with diabetes: <7.0 12 Microscopic follows if indic ated. Procedures Description No Information Available Medical Devices Description No Information Available Encounters Type Date Location Provider Dx Diagnosis Office Visit 09/08/2020 1:00p [facility] Aidan Mak D.O., FAAFP I10 Essential (primary) hypertension E78.5 Hyperlipidemia, unspecified Z79.84 care home (current) use of o ral hypoglycemic drugs E11.9 Type 2 diabetes mellitus wit hout complications Office Visit 06/09/2020 1:45p [facility] Aidan Mak D.O., FAAFP I10 Essential (primary) hypertension E78.5 Hyperlipidemia, unspecified Z79.84 intermediate frame tender (current) use of o ral hypoglycemic drugs E11.9 Type 2 diabetes mellitus wit hout complications Office Visit 05/20/2020 4:00p [facility] Josemanuel Arvizu, FAAFP R30.0 Dysuria N39.0 Urinary tract infection, sit e not specified Office Visit 04/06/2020 1:45p [facility] Josemanuel Arvizu, FAAFP R30.0 Dysuria R39.11 Hesitancy of micturition Office Visit 03/10/2020 1:00p [facility] Aidan Mak D.O., FAAFP I10 Essential (primary) hypertension E78.5 Hyperlipidemia, unspecified Z79.84 care home (current) use of o ral hypoglycemic drugs E11.9 Type 2 diabetes mellitus wit hout complications Assessments Date Code Description Provider 09/08/2020 I10 Essential (primary) hypertension Aidan Mak D.O., [facility] 09/08/2020 E78.5 Hyperlipidemia, unspecified Aditya Mak D.O., [facility] 09/08/2020 Z79.84 intermediate frame tender (current) use of oral hypoglycemic drugs Aidan Mak D.O., [facility] 09/08/2020 E11.9 Type 2 diabetes mellitus without complications Aidan Mak D.O., [facility] 06/09/2020 I10 Essential (primary) hypertension Aidan Mak D.O., [facility] 06/09/2020 E78.5 Hyperlipidemia, unspecified Aditya Mak D.O., [facility] 06/09/2020 Z79.84 intermediate frame tender (current) use of oral hypoglycemic drugs Aidan Mak D.O., [facility] 06/09/2020 E11.9 Type 2 diabetes mellitus without complications Aidan Mak D.O., [facility] 05/20/2020 R30.0 Dysuria Aidan Mak D.O., [facility] 05/20/2020 N39.0 Urinary tract infection, site no t specified Aidan Mak D.O., [facility] 04/06/2020 R30.0 Dysuria Aidan Mak D.O., [facility] 04/06/2020 R39.11 Hesitancy of micturition Aidan Mak D.O., [facility] 03/10/2020 I10 Essential (primary) hypertension Aidan Mak D.O., [facility] 03/10/2020 E78.5 Hyperlipidemia, unspecified Aditya Mak D.O., [facility] 03/10/2020 Z79.84 intermediate frame tender (current) use of oral hypoglycemic drugs Aidan Mak D.O., [facility] 03/10/2020 E11.9 Type 2 diabetes mellitus without complications Aidan Mak D.O., [facility] Plan of Treatment Future Appointment(s):* 12/07/2020 1:15 pm - Aidan Mak D.O., [facility] at [facility] * 02/16/2021 9:30 am - Stephanie Manuel PA at [facility] Functional Status Description No Information Available Mental Status Description No Information Available Referrals Refer to Reason for Referral Status Appt Date Augustin Sparks MD please eval s/sx of recurr ent lower urinary symptoms abnormal urines recent cultures neg Sent [facility] Urologist [address] [address] [phone] Demetris Ware M.D. CATARACTS OS>OD HX OF DM blurry vis ion Sent [address] [facility] [address] [place] [id number] [phone]
--- OUTSIDE RECORDS SUMMARY | 2020-09-24 07:32 | CCD | Continuity of Care Document ---
Author Author Sherita MAK D.O. Organization Unknown Address 3 [facility] 3 [place] [address] Phone [phone] Problems Active Problems Provider Date Benign essential hypertension Aidan Mak D.O., SHARRI O nset: 07/18/2011 Vitamin D deficiency Aidan Mak D.O., LOISFP Onset: 12/2010 Hyperlipidemia Aidan Mak D.O., [place] Onset: 09/2011 Type 2 diabetes mellitus Aidan [...] former smoker Quit 2013 Smoking Status Reviewed: 06/09/20 Patient is a former smoker Qu it [...] twice every day 180tabs [facility] 2 w/Device Kit test blood sugar every day dx e11.9 1units E11.9 [facility] 04/08/2019 Lisinopril 40mg Tablets 1 by mouth every day 90tabs [facility] Vitamin C 500mg Tablets 1 by mouth daily with a meal 100tabs [facility] D[facility]., [facility] Atenolol 25mg Tablets take one tablet by mouth every day 90tabs [facility] 07/2018 Onetouch Delica Lancets Extra Fine 33G Misc Use To Check Glucose Twice Daily And as Needed 200units E11.9 [facility] 11/10/2015 Onetouch Ultra Blue Strips Test Twice Daily 200units [facility] D[facility]O., [facility] One Touch Test Strips test blood glucose twice a day 200units E 11.9 Daiana Watson, [facility]- 04/17/2013 Vit D 2000 Capsules 1 qd 100caps [facility] 11/14/[address] 1 by mouth every day OTC Unknown Vitamin B-12 500mcg Tablets Sub 1 by mouth every day Unknown History Medications Doxycycline Hyclate 100mg Tablets 1 by mouth twice a day x 10 days 20tabs Josemanuel Arvizu, FAAFP 05/20/2020 - 05/20/2020 Cephalexin 500mg Capsules 1 tab by mouth three times a day for 10 days 30caps [facility]u, [facility] 05/20/2020 - 06/09/2020 Keflex 500mg Capsules 1 by mouth three times a day x 7 days 21caps Aidan Mak D.O., [facility] 04/06/2020 - 05/20/2020 Medications Administered in Office Medication SIG Qnty Indications Ordering Provider Date Injection (SC)/(Im) Injection Aidan Mak D.O., [facility] 05/22/2012 Injection (SC)/(Im) Injection Aidan Mak D.O., [facility] 08/02/2011 Injection (SC)/(Im) Injection Aidan Mak D.O., [facility] 07/18/2011 Immunizations CPT Code Status Date Vaccine Lot # [id number] Given 06/09/2020 Influenza Virus Vaccine, Quadrivalent, Slit Virus, Im Use 3Y & Up [id number] 78886 Given 07/01/2019 Influenza Virus Vaccine, Quadrivalent, Slit Virus, Im Use 3Y & Up [id number] 52043 Given 04/24/2018 Influenza Virus Vaccine, Quadrivalent, Slit Virus, Im Use 3Y & Up [id number] 28494 Given 04/24/2017 Influenza Virus Vaccine, Quadrivalent, Slit Virus, Im Use 3Y & Up [id number] 45962 Given 04/26/2016 Influenza Vaccin e (Fluzone) 3Yrs Of Age Or Older Medicare Plans [id number] 69139 Given 08/03/2015 Influenza Vaccin e (Fluzone) 3Yrs Of Age Or Older Medicare Plans [id number] Q2037 Given 05/19/2014 Influenza Vaccin e (Fluvirin) 3Yrs Of Age Or Older Medicare Plans [id number] 91391 Given 06/10/2013 Influenza Vaccin e (Fluzone) 3Yrs Of Age Or Older Medicare Plans 79491 Given 06/10/2013 Influenza Virus Vac. Split Virus Individuals 3 Years And Above [id number] 86528 Given 05/22/2012 Influenza Vaccin e (Fluzone) 3Yrs Of Age Or Older Medicare Plans 23210 Given 05/22/2012 Influenza Virus Vac. Split Virus Individuals 3 Years And Above [id number] 04469 Given 08/02/2011 Pneumococcal Immunization [id number] 94890 Given 07/18/2011 Influenza Vaccin e (Fluzone) 3Yrs Of Age Or Older Medicare Plans 83953 Given 07/18/2011 Influenza Virus Vac. Split Virus Individuals 3 Years And Above [id number] Vital Signs Date Vital Result Comment 09/08/2020 1:09pm BP Systolic 128 mmHg BP Diastolic 78 mmHg Body Temperature 98.0 F Heart Rate 76 /min Respiratory Rate 16 /min Height 60 inches 5'0" Weight 130.00 lb [place] Body Weight 100 lb BMI (Body Mass Index) 25.4 kg/m2 O2 % BldC Oximetry 97 % 06/09/2020 1:55pm BP Systolic 128 mmHg BP Diastolic 76 mmHg Body Temperature 97.6 F Heart Rate 70 /min Respiratory Rate 16 /min Height 60 inches 5'0" Weight 130.00 lb [place] Body Weight 100 lb BMI (Body Mass Index) 25.4 kg/m2 O2 % BldC Oximetry 98 % Results Test Acquired Date Facility Test Result H/L Range Note CBC With Differential/Platelet 09/08/2020 [facility] WBC 7.5 x10E3/uL 3.4-10.8 RBC 4.12 x10E6/uL 3.77-5.28 Hemoglobin 12.3 g/dL 11.1-15.9 Hematocrit 36.7 % 34.0-46.6 MCV 89 fL 79-97 MCH 29.9 pg 26.6-33.0 MCHC 33.5 g/dL 31.5-35.7 RDW 12.5 % 11.7-15.4 Platelets 316 x10E3/uL 150-450 Neutrophils 73 % Not Estab. Lymphs 20 % Not Estab. Monocytes 6 % Not Estab. Eos 1 % Not Estab. Basos 0 % Not Estab. Immature Cells TNP Neutrophils (Absolute) 5.5 x10E3/uL 1.4-7.0 Lymphs (Absolute) 1.5 x10E3/uL 0.7-3.1 Monocytes(Absolute) 0.4 x10E3/uL 0.1-0.9 Eos (Absolute) 0.1 x10E3/uL 0.0-0.4 Baso (Absolute) 0.0 x10E3/uL 0.0-0.2 Immature Granulocytes 0 % Not Estab. Immature Grans (Abs) 0.0 x10E3/uL 0.0-0.1 NRBC TNP Hematology Comments: TNP Metabolic Panel (14), Comprehensive 09/08/2020 [facility] [place] Glucose 103 mg/dL High 65-99 BUN 26 mg/dL 8-27 Creatinine 0.94 mg/dL 0.57-1.00 eGFR If NonAfricn Am 60 mL/min/1.73 >59 eGFR If Africn Am 69 mL/min/1.73 >59 BUN/Creatinine Ratio 28 12-28 Sodium 139 mmol/L 134-144 Potassium 5.2 mmol/L 3.5-5.2 Chloride 102 mmol/L 96-106 Carbon Dioxide, Total 24 mmol/L 20-29 Calcium 10.0 mg/dL 8.7-10.3 Protein, Total 6.7 g/dL 6.0-8.5 Albumin 4.2 g/dL 3.7-4.7 Globulin, Total 2.5 g/dL 1.5-4.5 A/G Ratio 1.7 1.2-2.2 Bilirubin, Total <0.2 mg/dL 0.0-1.2 Alkaline Phosphatase 69 IU/L 39-117 Ast (Sgot) 13 IU/L 0-40 Alt (SGPT) 7 IU/L 0-32 Lipid Panel 09/08/2020 [facility] [place] Cholesterol, Total 241 mg/dL High 100-199 Triglycerides 203 mg/dL High 0-149 HDL Cholesterol 92 mg/dL >39 VLDL Cholesterol Arnaldo 34 mg/dL 5-40 LDL Chol Calc (Nih) 115 mg/dL High 0-99 Comment: TNP Laboratory test finding 09/08/2020 [facility] [place] Creatine Kinase,Total 44 U/L 32-182 Hemoglobin A1c 09/08/2020 [facility] [place] Hemoglobin A1c 6.5 % High 4.8-5.6 1 Urinalysis, Complete 09/08/2020 [facility] [place] Specific [place] 1.021 1.005-1.030 pH 5.5 5.0-7.5 Urine-Color Yellow Yellow Appearance Clear Clear WBC Esterase 1+ Abnormal Negative Protein Negative Negative/Trace Glucose Negative Negative Ketones Negative Negative Occult Blood Negative Negative Bilirubin Negative Negative Urobilinogen,Semi-Qn 0.2 mg/dL 0.2-1.0 Nitrite, Urine Negative Negative Microscopic Examination See below: Microscopic Examination TNP WBC 6-10 /hpf Abnormal 0 - 5 RBC 0-2 /hpf 0 - 2 Epithelial Cells (non renal) >10 /hpf Abnormal 0 - 10 Epithelial Cells (renal) TNP Casts Present /lpf Abnormal None seen Cast Type Hyaline casts N/A Crystals TNP Crystal Type TNP Mucus Threads Present Not Estab. Bacteria Few None seen/Few Yeast TNP Trichomonas TNP Comment TNP Metabolic Panel (14), Comprehensive 06/09/2020 [facility] [...] Alt (SGPT) 9 IU/L 0-32 Lipid Panel 06/09/2020 [facility] [place] Cholesterol, Total 209 mg/dL High 100-199 Triglycerides 87 mg/dL 0-149 HDL Cholesterol 86 mg/dL >39 VLDL Cholesterol Arnaldo 15 mg/dL 5-40 LDL Chol Calc (Nih) 108 mg/dL High 0-99 Comment: TNP Laboratory test finding 06/09/2020 [facility] [place] Creatine Kinase,Total 58 U/L 32-182 Urinalysis, Complete 06/09/2020 [facility] [place] Specific [place] 1.016 1.005-1.030 pH 5.5 5.0-7.5 Urine-Color Yellow [...] seen/Few Yeast TNP Trichomonas TNP Comment TNP Hemoglobin A1c 06/09/2020 [facility] [place] Hemoglobin A1c 6.3 % High 4.8-5.6 3 CBC With Differential/Platelet 06/09/2020 [facility] N E [...] x10E3/uL 0.0-0.1 NRBC TNP Hematology Comments: TNP Urine Culture, Routine 05/20/2020 [facility] [place] Urine Culture, Routine Final report 4, 5 Result 1 See Comment: 6 U/A DIP 05/20/2020 FPA/Inhouse Color yellow QUAL Clarity slightly hazy QUAL Glucose-Ua Negative g/dL Negative Bilirubin,Urine Negative QUAL Negative Ketone Trace mg/dL Abnormal Negative Specific [place] 1.025 # 1.000 - 1.030 Blood - [...] QUAL Comment UCS SENT OUT NA Coronavirus 2018 ([facility]) 04/30/2020 [facility]) [phone] Coronavirus 2018 ([facility]) <SEE NOTE> 7 Urine Culture, Routine 04/06/2020 [facility] [place] Urine Culture, Routine Final report 8, 9 Result 1 No growth 10 U/A DIP 04/06/2020 FPA/Inhouse Color yellow QUAL Clarity cloudy QUAL Glucose-Ua Negative g/dL Negative Bilirubin,Urine Small QUAL Abnormal Negative Ketone Negative mg/dL Negative Specific [place] 1.010 # 1.000 - 1.030 Blood - [...] RARE QUAL Comment UCS SENT OUT NA 1 Prediabetes: 5.7 - 6.4 Diabetes: >6.4 Glycemic control for adults with diabetes: <7.0 2 Microscopic follows if indic ated. 3 Prediabetes: 5.7 - 6.4 Diabetes: >6.4 Glycemic control for adults with diabetes: <7.0 4 SRC:VOIDED 5 Source of Specimen: VOIDED 6 Source of Specimen: VOIDED Culture shows less than 10,000 colony forming units of bacteria per milliliter of urine. This colony count is not generally considered to be clinically significant. 7 Test: COVID-19 Nasal/Naspharynx Result: NOT DETECTED Reference Units: Not detected Note: Please consider re-collection of a new specimen, if clinically indicated. Note: The COVID-19 assay has been FDA cleared by the U.S. Food and Drug Administration under the Emergency Use Authorization (EUA). [facility] is designated as a high complexity laboratory by the Clinical Laboratory Improvement Amendments of 1988 (CLIA) and is qualified to perform this test. ASSAY INFORMATION: [id number]. Patient samples for this assay have been pooled. All positive samples have been individually repeated for confirmation. The pooling protocol is pending FDA review. 8 SRC:UA VOIDED 9 Source of Specimen: UA VOIDE D 10 Source of Specimen: UA VOIDE D Procedures Description No Information Available Medical Devices Description No Information Available Encounters Type Date Location Provider Dx Diagnosis Office Visit 09/08/2020 1:00p [place] [facility] Aidan Mak D.O., FAAFP I10 Essential (primary) hypertension E78.5 Hyperlipidemia, unspecified Z79.84 retirement (current) use of o ral hypoglycemic drugs E11.9 Type 2 diabetes mellitus wit hout complications Office Visit 06/09/2020 1:45p [place] [facility] Aidan Mak D.O., FAAFP I10 Essential (primary) hypertension E78.5 Hyperlipidemia, unspecified Z79.84 retirement (current) use of o ral hypoglycemic drugs E11.9 Type 2 diabetes mellitus wit hout complications Office Visit 05/20/2020 4:00p [place] [facility] Josemanuel Arvizu, FAAFP R30.0 Dysuria N39.0 Urinary tract infection, sit e not specified Office Visit 04/06/2020 1:45p [place] [facility] Josemanuel Arvizu, FAAFP R30.0 Dysuria R39.11 Hesitancy of micturition Assessments Date Code Description Provider 09/08/2020 I10 Essential (primary) hypertension Aidan Mak D.O., FAAFP 09/08/2020 E78.5 Hyperlipidemia, unspecified Aditya Mak D.O., FAA 09/08/2020 Z79.84 retirement (current) use of oral hypoglycemic drugs Aidan Mak D.O., FAAFP 09/08/2020 E11.9 Type 2 diabetes mellitus without complications Aidan Mka D.O., [facility]FP 06/09/2020 I10 Essential (primary) hypertension Aidan Mak D.O., [facility]FP 06/09/2020 E78.5 Hyperlipidemia, unspecified Aditya Mak D.O., FAAFP 06/09/2020 Z79.84 retirement (current) use of oral hypoglycemic drugs Aidan Mak D.O., FAAFP 06/09/2020 E11.9 Type 2 diabetes mellitus without complications Aidan Mak D.O., FAAFP 05/20/2020 R30.0 Dysuria Aidan Mak D.O., FAAFP 05/20/2020 N39.0 Urinary tract infection, site no t specified Aidan Mak D.O., FAAFP 04/06/2020 R30.0 Dysuria Aidan Mak D.O., FAAFP 04/06/2020 R39.11 Hesitancy of micturition Aidan Mak D.O., SHARRI Plan of Treatment Future Appointment(s):* 12/07/2020 1:15 pm - Aidan Mak D.O., FAAFP at [facility] * 02/16/2021 9:30 am - Stephanie Manuel PA at [facility] Functional Status Description No Information Available Mental Status Description No Information Available Referrals Refer to Reason for Referral Status Appt Date Augustin Sparks MD please eval s/sx of recurr ent lower urinary symptoms abnormal urines recent cultures neg Sent [facility] Urologist [address] [place] [address] [phone]
--- OUTSIDE RECORDS SUMMARY | 2020-09-24 07:32 | CCD | Continuity of Care Document ---
Author Author Sherita MAK D.O. Organization Unknown Address 3 [facility] 3 [place] [address] Phone [phone] Problems Active Problems Provider Date Benign essential [...] twice every day 180tabs [facility]idan [facility] D.O., [facility] Onet[facility] Ultra 2 w/Device Kit test blood sugar every day dx e11.9 1units E11.9 Aidan Mak D.O., [facility] 04/08/2019 Lisinopril 40mg Tablets 1 by mouth every day 90tabs Aidan Mak D.O., [facility] Vitamin C 500mg Tablets 1 by mouth daily with a meal 100tabs Aidan Mak D.O., [facility] Atenolol 25mg Tablets take one tablet by mouth every day 90tabs Aidan Mak D.O., [facility] 07/2018 Onetouch Delica Lancets Extra Fine 33G Misc Use To Check Glucose Twice Daily And as Needed 200units E11.9 Aidan Mak D.O., [facility] 11/10/2015 Onetouch Ultra Blue Strips Test Twice Daily 200units Aidan Mak D.O., [facility] One Touch Test Strips test blood glucose twice a day 200units E 11.9 Daiana Watson, [facility]- 04/17/2013 Vit D 2000 Capsules 1 qd 100caps Aidan Mak D.O., [facility] 11/14/[address] 1 by mouth every day OTC Unknown Vitamin B-12 500mcg Tablets Sub 1 by mouth every day Unknown History Medications Doxycycline Hyclate 100mg Tablets 1 by mouth twice a day x 10 days 20tabs Josemanuel Arvizu, FAAFP 05/20/2020 - 05/20/2020 Cephalexin 500mg Capsules 1 tab by mouth three times a day for 10 days 30caps Jess Arvizu, [facility] 05/20/2020 - 06/09/2020 Keflex 500mg Capsules 1 by mouth three times a day x 7 days 21caps Aidan Mak D.O., [facility] 04/06/2020 - 05/20/2020 Medications Administered in Office Medication SIG Qnty Indications Ordering Provider Date Injection (SC)/(Im) Injection Aidan Mak D.O., [facility] 05/22/2012 Injection (SC)/(Im) Injection Aidan Mak D.O., [facility] 08/02/2011 Injection (SC)/(Im) Injection Aidan Mak D.O., [facility] 07/18/2011 Immunizations CPT Code Status Date Vaccine Lot # [id number] Given 06/09/2020 Influenza Virus Vaccine, Quadrivalent, Slit Virus, Im Use 3Y & Up [id number] 68969 Given 07/01/2019 Influenza Virus Vaccine, Quadrivalent, Slit Virus, Im Use 3Y & Up [id number] 33990 Given 04/24/2018 Influenza Virus Vaccine, Quadrivalent, Slit Virus, Im Use 3Y & Up [id number] 14082 Given 04/24/2017 Influenza Virus Vaccine, Quadrivalent, Slit Virus, Im Use 3Y & Up [id number] 56147 Given 04/26/2016 Influenza Vaccin e (Fluzone) 3Yrs Of Age Or Older Medicare Plans [id number] 04526 Given 08/03/2015 Influenza Vaccin e (Fluzone) 3Yrs Of Age Or Older Medicare Plans [id number] Q2037 Given 05/19/2014 Influenza Vaccin e (Fluvirin) 3Yrs Of Age Or Older Medicare Plans [id number] 73956 Given 06/10/2013 Influenza Vaccin e (Fluzone) 3Yrs Of Age Or Older Medicare Plans 51313 Given 06/10/2013 Influenza Virus Vac. Split Virus Individuals 3 Years And Above [id number] 52918 Given 05/22/2012 Influenza Vaccin e (Fluzone) 3Yrs Of Age Or Older Medicare Plans 66526 Given 05/22/2012 Influenza Virus Vac. Split Virus Individuals 3 Years And Above [id number] 15664 Given 08/02/2011 Pneumococcal Immunization [id number] 18348 Given 07/18/2011 Influenza Vaccin e (Fluzone) 3Yrs Of Age Or Older Medicare Plans 29233 Given 07/18/2011 Influenza Virus Vac. Split Virus Individuals 3 Years And Above [id number] Vital Signs Date Vital Result Comment 09/08/2020 1:09pm BP Systolic 128 mmHg BP Diastolic 78 mmHg Body Temperature 98.0 F Heart Rate 76 /min Respiratory Rate 16 /min Height 60 inches 5'0" Weight 130.00 lb [place] Body Weight 100 lb BMI (Body Mass Index) 25.4 kg/m2 O2 % BldC Oximetry 97 % 06/09/2020 1:55pm BP Systolic 128 mmHg BP Diastolic 76 mmHg Body Temperature 97.6 F Heart Rate 70 /min Respiratory Rate 16 /min Height 60 inches 5'0" Weight 130.00 lb [place] Body Weight 100 lb BMI (Body Mass [...] 1 Urinalysis, Complete 09/08/2020 [facility] [place] Specific [place] 1.021 1.005-1.030 pH 5.5 5.0-7.5 Urine-Color Yellow [...] 32-182 Urinalysis, Complete 06/09/2020 [facility] [place] Specific [place] 1.016 1.005-1.030 pH 5.5 5.0-7.5 Urine-Color Yellow [...] Negative Ketone Trace mg/dL Abnormal Negative Specific [place] 1.025 # 1.000 - 1.030 Blood - [...] Comment UCS SENT OUT NA Coronavirus 2018 ([facility]) 04/30/2020 [facility]) [phone] Coronavirus 2018 ([facility]) <SEE NOTE> 7 Urine Culture, Routine 04/06/2020 [facility] [place] Urine Culture, Routine Final report 8, 9 Result 1 No growth 10 U/A DIP 04/06/2020 FPA/Inhouse Color yellow QUAL Clarity cloudy QUAL Glucose-Ua Negative g/dL Negative Bilirubin,Urine Small QUAL Abnormal Negative Ketone Negative mg/dL Negative Specific [place] 1.010 # 1.000 - 1.030 Blood - [...] Administration under the Emergency Use Authorization (EUA). [facility] is designated as a high complexity laboratory by the Clinical Laboratory Improvement Amendments of 1988 (CLIA) and is qualified to perform this test. ASSAY INFORMATION: [id number]. Patient samples for this assay have been pooled. All positive samples have been individually repeated for confirmation. The pooling protocol is pending FDA review. 8 SRC:UA VOIDED 9 Source of Specimen: UA VOIDE D 10 Source of Specimen: UA VOIDE D Procedures Description No Information Available Medical Devices Description No Information Available Encounters Type Date Location Provider Dx Diagnosis Office Visit 09/08/2020 1:00p [place] [facility] Aidan Mak D.O., FAAFP I10 Essential (primary) hypertension E78.5 Hyperlipidemia, unspecified Z79.84 [facility] (current) use of o ral hypoglycemic drugs E11.9 Type 2 diabetes mellitus wit hout complications Office Visit 06/09/2020 1:45p [place] [facility] Aidan Mak D.O., FAAFP I10 Essential (primary) hypertension E78.5 Hyperlipidemia, unspecified Z79.84 [facility] (current) use of o ral hypoglycemic drugs E11.9 Type 2 diabetes mellitus wit hout complications Office Visit 05/20/2020 4:00p [place] [facility] Josemanuel Arvizu, FAAFP R30.0 Dysuria N39.0 Urinary tract infection, sit e not specified Office Visit 04/06/2020 1:45p [place] [facility] Josemanuel Arvizu, FAAFP R30.0 Dysuria R39.11 Hesitancy of micturition Assessments Date Code Description Provider 09/08/2020 I10 Essential (primary) hypertension Aidan Mak D.O., FAAFP 09/08/2020 E78.5 Hyperlipidemia, unspecified Aditya Mak D.O., FAA 09/08/2020 Z79.84 [facility] (current) use of oral hypoglycemic drugs Aidan Mak D.O., [facility] 09/08/2020 E11.9 Type 2 diabetes mellitus without complications Aidan Mak D.O., [facility]FP 06/09/2020 I10 Essential (primary) hypertension Aidan Mak D.O., [facility]FP 06/09/2020 E78.5 Hyperlipidemia, unspecified Aditya Mak D.O., FAAFP 06/09/2020 Z79.84 [facility] (current) use of oral hypoglycemic drugs Aidan [...] pm - Aidan Mak D.O., FAAFP at [facility] * 02/16/2021 9:30 am - Stephanie Manuel PA at [facility] Functional Status Description No Information Available Mental Status Description No Information Available Referrals Refer to Reason for Referral Status Appt Date Augustin Sparks MD please eval s/sx of recurr ent lower urinary symptoms abnormal urines recent cultures neg Sent [facility] Urologist [address] [place] [address] [phone]
--- OUTSIDE RECORDS SUMMARY | 2020-09-24 07:33 | CCD ---
Author Author [facility] Organization [facility] Address Unknown Phone Unavailable Care Team Providers Care Control Officer Name Role Phone Barraclough, Stephanie PA Unavailable Unavailable Barraclough, Stephanie PA Unavailable Unavailable Barraclough, Stephanie PA Unavailable Unavailable Barraclough, Stephanie PA Unavailable Unavailable Barraclough, Stephanie PA Unavailable Unavailable Barraclough, Stephanie PA Unavailable Unavailable Maria G Herrera MD, FACS Unavailable Unavailable Maria G Herrera MD, FACS Unavailable Unavailable Maria G Herrera MD, FACS Unavailable Unavailable Maria G Herrera MD, FACS Unavailable Unavailable Maria G Herrera MD, FACS Unavailable Unavailable Botello Raymundo, Maria G Willson MD, FACS Unavailable Unavailable Botello Raymundo, Maria G Willson MD, FACS Unavailable Unavailable Botelol Raymundo, Maria G Willson MD, FACS Unavailable Unavailable Botello Raymundo, Maria G Willson MD, FACS Unavailable Unavailable Botello Raymundo, Maria G Willson MD, FACS Unavailable Unavailable Botello Raymundo, Maria G Willson MD, FACS Unavailable Unavailable Botello Raymundo, Maria G Willson MD, FACS Unavailable Unavailable Botello Raymundo, Maria G Willson MD, FACS Unavailable Unavailable Botello Raymundo, Maria G Willson MD, FACS Unavailable Unavailable Botello Raymundo, Maria G Willson MD, FACS Unavailable Unavailable Btoello Raymundo, Maria G Willson MD, FACS Unavailable Unavailable Botello Raymundo, Maria G Willson MD, FACS Unavailable Unavailable Botello Raymundo, Maria G Willson MD, FACS Unavailable Unavailable Botello Raymundo, Maria G Willson MD, FACS Unavailable Unavailable Botello Raymundo, Maria G Willson MD, FACS Unavailable Unavailable Botello Raymundo, Maria G Willson MD, FACS Unavailable Unavailable Botello Raymundo, Maria G Willson MD, FACS Unavailable Unavailable Botello Raymundo, Maria G Willson MD, FACS Unavailable Unavailable Botello Raymundo, Maria G Willson MD, FACS Unavailable Unavailable Botello Raymundo, Maria G Willson MD, FACS Unavailable Unavailable Botello Raymundo, Maria G Willson MD, FACS Unavailable Unavailable Botello Raymundo, Maria G Willson MD, FACS Unavailable Unavailable Botello Raymnudo, Maria G Willson MD, FACS Unavailable Unavailable Botello Raymundo, Maria G Willson MD, FACS Unavailable Unavailable Botello Raymundo, Maria G Willson MD, FACS Unavailable Unavailable Botello Raymundo, Maria G Willson MD, FACS Unavailable Unavailable Botello Raymundo, Maria G Willson MD, FACS Unavailable Unavailable Botello Raymundo, Maria G Willson MD, FACS Unavailable Unavailable Botello Raymundo, Maria G Willson MD, FACS Unavailable Unavailable Fish, J Aidan Unavailable Unavailable Fish, J Aidan Unavailable Unavailable Fish, J Aidan Unavailable Unavailable Fish, J Aidan Unavailable Unavailable Fish, J Aidan Unavailable Unavailable Fish, J Aidan Unavailable Unavailable Fish, J Aidan Unavailable Unavailable Fish, J Aidan Unavailable Unavailable Fish, J Aidan Unavailable Unavailable Fish, J Aidan Unavailable Unavailable Fish, J Aidan Unavailable Unavailable Fish, J Aidan Unavailable Unavailable Fish, J Aidan Unavailable Unavailable Fish, J Aidan Unavailable Unavailable Fish, J Aidan Unavailable Unavailable Fish, J Aidan Unavailable Unavailable Fish, J Aidan Unavailable Unavailable Fish, J Aidan Unavailable Unavailable Fish, J Aidan Unavailable Unavailable Fish, J Aidan Unavailable Unavailable Fish, J Aidan Unavailable Unavailable Fish, J Aidan Unavailable Unavailable Fish, J Aidan Unavailable Unavailable Fish, J Aidan Unavailable Unavailable Fish, J Aidan Unavailable Unavailable Fish, J Aidan Unavailable Unavailable Fish, J Aidan Unavailable Unavailable Fish, J Aidan Unavailable Unavailable Fish, J Aidan Unavailable Unavailable Fish, J Aidan Unavailable Unavailable Fish, J Aidan Unavailable Unavailable Fish, J Iadan Unavailable Unavailable Fish, J Aidan Unavailable Unavailable Fish, J Aidan Unavailable Unavailable Fish, J Aidan Unavailable Unavailable Fish, J Aidan Unavailable Unavailable Fish, J Aidan Unavailable Unavailable Fish, J Aidan Unavailable Unavailable Fish, J Aidan Unavailable Unavailable Fish, J Aidan Unavailable Unavailable Fish, J Aidan Unavailable Unavailable Fish, J Aidan Unavailable Unavailable Fish, J Aidan Unavailable Unavailable Fish, J Aidan Unavailable Unavailable Fish, J Aidan Unavailable Unavailable Fish, J Aidan Unavailable Unavailable Fish, J Aidan Unavailable Unavailable Fish, J Aidan Unavailable Unavailable Fish, J Aidan Unavailable Unavailable Fish, J Aidan Unavailable Unavailable Fish, J Aidan Unavailable Unavailable Fish, J Aidan Unavailable Unavailable Fish, J Aidan Unavailable Unavailable Fish, J Aidan Unavailable Unavailable Fish, J Aidan Unavailable Unavailable Fish, J Aidan Unavailable Unavailable Fish, J Aidan Unavailable Unavailable Fish, J Aidan Unavailable Unavailable Fish, J Aidan Unavailable Unavailable Fish, J Aidan Unavailable Unavailable Fish, J Aidan Unavailable Unavailable Fish, J Aidan Unavailable Unavailable Fish, J Aidan Unavailable Unavailable Fish, J Aidan Unavailable Unavailable Fish, J Aidan Unavailable Unavailable Fish, J Aidan Unavailable Unavailable Fish, J Aidan Unavailable Unavailable Fish, J Aidan Unavailable Unavailable Fish, J Aidan Unavailable Unavailable Fish, J Aidan Unavailable Unavailable Fish, J Aidan Unavailable Unavailable Fish, J Aidna Unavailable Unavailable Fish, J Aidan Unavailable Unavailable Fish, J Aidan Unavailable Unavailable Fish, J Aidan Unavailable Unavailable Fish, J Aidan Unavailable Unavailable Fish, J Aidan Unavailable Unavailable Fish, J Aidan Unavailable Unavailable Fish, J Aidan Unavailable Unavailable Fish, J Aidan Unavailable Unavailable Fish, J Aidan Unavailable Unavailable Fish, J Aidan Unavailable Unavailable Fish, J Aidan Unavailable Unavailable Fish, J Aidan Unavailable Unavailable Fish, J Aidan Unavailable Unavailable Henry MACDONALD DO Unavailable [phone] RIDDHI, A. DESI DO Unavailable [phone] RIDDHI, Maria G. DESI DO Unavailable [phone] RIDDHI, A. DESI DO Unavailable [phone] RIDDHI, A. DESI DO Unavailable [phone] RIDDHI, A. DESI DO Unavailable [phone] RIDDHI, A. DESI DO Unavailable [phone] RIDDHI, A. DESI DO Unavailable [phone] RIDDHI, A. DESI DO Unavailable [phone] RIDDHI, A. DESI DO Unavailable [phone] RIDDHI, A. DESI DO Unavailable [phone] RIDDHI, A. DESI DO Unavailable [phone] RIDDHI, A. DESI DO Unavailable [phone] RIDDHI, A. DESI DO Unavailable [phone] RIDDHI, A. DESI DO Unavailable [phone] RIDDHI, A. DESI DO Unavailable [phone] RIDDHI, A. DESI DO Unavailable [phone] RIDDHI, A. DESI DO Unavailable [phone] RIDDHI, A. DESI DO Unavailable [phone] RIDDHI, Marai G. DESI DO Unavailable [phone] RIDDHI, Maria G. DESI DO Unavailable [phone] Re-disclosure Warning The records that you are about to access may contain information from federally-assisted alcohol or drug abuse programs. If such information is present, then the following federally mandated warning applies: This information has been disclosed to you from records protected by federal confidentiality rules (42 CFR part 2). The federal rules prohibit you from making any further disclosure of this information unless further disclosure is expressly permitted by the written consent of the person to whom it pertains or as otherwise permitted by 42 CFR part 2. A general authorization for the release of medical or other information is NOT sufficient for this purpose. The Federal rules restrict any use of the information to criminally investigate or prosecute any alcohol or drug abuse patient.The records that you are about to access may contain highly sensitive health information, the redisclosure of which is protected by Article 27-F of the [facility] Public Health law. If you continue you may have access to information: Regarding HIV / AIDS; Provided by facilities licensed or operated by the [facility] Office of Mental Health; or Provided by the [facility] Office for People With Developmental Disabilities. If such information is present, then the following [facility] mandated warning applies: This information has been disclosed to you from confidential records which are protected by state law. State law prohibits you from making any further disclosure of this information without the specific written consent of the person to whom it pertains, or as otherwise permitted by law. Any unauthorized further disclosure in violation of state law may result in a fine or chcf sentence or both. A general authorization for the release of medical or other information is NOT sufficient authorization for further disc losure. Allergies and Adverse Reactions Type Description Substance Reaction Status Data Source(s ) Drug allergy Cleocin Clindamycin HCl Active GREENWA Y (Demetris Raymundo MD [facility]) Drug allergy Cleocin Clindamycin HCl Active [place] (Demetris Raymundo MD [facility]) Drug allergy Levaquin Levaquin Active JOLENE (Cecilio Raymundo MD [facility]) Drug allergy Sulfa Antibiotics Sulfa Antibiotics Active JOLENE (Demetris Raymundo MD [facility]) Drug allergy Levaquin Levaquin Active JOLENE (Cecilio Raymundo MD [facility]) Drug allergy Sulfa Antibiotics Sulfa Antibiotics Active JOLENE (Demetris Raymundo MD [facility]) Family History Family Member Name Family Member Gender Family Member Status Date o f Status Description Data Source(s) Unknown Male Problem [facility]ENT ([facility]) () Unknown Male Problem [facility] ([facility] ) Unknown Female Problem MEDENT ([facility] Encounters Encounter Providers Location Date Indications Data Source(s ) Outpatient<td ID="encounterTypeDescripti onID0">POST OP VISIT WITH PRE- OP</td><td>Desi Macdonald DO</td><td>Demetris Ware MD [facility]</td><td>09/18/2020</td><td>12:32PM</td><td>09/17/2020 11:59PM</td><td><content ID="encounterDiagnosisID0-0">Cataract Senile Nuclear</content>, <content ID="encounterDiagnosisID0-1">Pseudophakia</content></td> Attender: DESI Pitt MD [facility] 09/18/2020 12:32:00 PM EST - 09/17/2020 11:59:00 PM EST PseudophakiaCataract Senile Nuclear JOLENE (Demetris Raymundo MD [facility]) Pseudophakia Cataract Senile Nuclear Outpatient<td ID="encounterTypeDescripti onID1">Extracapsular cataract removal w/IOL implant</td><td>Desi Macdonald DO</td><td>[facility]</td><td>09/17/2020</td><td>7:03AM</td><td>7:04AM</td><td></td> Attender: DESI MACDONALD DO [facility] 09/17/2020 07:03:00 AM EST - 09/17/2020 07:04:00 AM EST JOLENE (Demetris mcfarlane MD [facility]) Outpatient Attender: Aidan Tamez [place] [facility] 09/08/2020 12:00:0 0 PM EST MEDENT ([facility] Outpatient<td ID="encounterTypeDescripti onID2">1 WK PREOP FOR SURGERY</td><td>Desi Macdonald DO</td><td>Demetris Ware MD [facility]</td><td>09/04/2020</td><td>12:27PM</td><td>1:36PM</td><td><content ID="encounterDiagnosisID2-0">Cataract Senile Nuclear</content></td> Attender: DESI Pitt MD [facility] 09/04/2020 12:27:00 PM EST - 09/04/2020 01:36:00 PM EST Cataract Senile Nuclear JOLENE (Demetris mcfarlane MD [facility]) Cataract Senile Nuclear Outpatient<td ID="encounterTypeDescripti onID3">Cataract Evaluation</td><td>Desi Macdonald DO</td><td>Demetris Ware MD [facility]</td><td>07/20/2020</td><td>1:57PM</td><td>3:49PM</td><td><content ID="encounterDiagnosisID3-0">Dry Eye Syndrome Both Eyes</content>, <content ID="encounterDiagnosisID3-1">Vitreous Disorders Degeneration</content>, <content ID="encounterDiagnosisID3-2">Diabetes Mellitus Type 2 Without Complication</content>, <content ID="encounterDiagnosisID3-3">Taking Medication For Diabetes Long-term Use of Oral Hypoglycemics</content>, <content ID="encounterDiagnosisID3-4">Cataract Senile Nuclear</content>, <content ID="encounterDiagnosisID3-5">Adhesions of Iris Posterior Synechiae</content></td> Attender: DESI Pitt MD [facility] 07/20/2020 01:57:00 PM EST - 07/20/2020 03:49:00 PM ES T Adhesions of Iris Posterior SynechiaeAdhesions of Iris Posterior SynechiaeCataract Senile NuclearTaking Medication For Diabetes Long-term Use of Oral HypoglycemicsDiabetes Mellitus Type 2 Without ComplicationVitreous Disorders DegenerationDry Eye Syndrome Both EyesCataract Senile NuclearTaking Medication For Diabetes Long-term Use of Oral HypoglycemicsDiabetes Mellitus Type 2 Without ComplicationVitreous Disorders DegenerationDry Eye Syndrome Both Eyes JOLENE (Demetris Raymundo MD [facility]) 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 Taking Medication For Diabetes Long-term Use of Oral Hypoglycemics Diabetes Mellitus Type 2 Without Complic ation Vitreous Disorders Degeneration 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 Taking Medication For Diabetes Long-term Use of Oral Hypoglycemics Diabetes Mellitus Type 2 Without Complic ation Vitreous Disorders Degeneration Dry Eye Syndrome Both Eyes Outpatient<td ID="encounterTypeDescripti onID4">NEW PATIENT WITH REFERRAL</td><td>Demetris Ware MD, FACS</td><td>Demetris Ware MD [facility]</td><td>06/22/2020</td><td>1:33PM</td><td>3:03PM</td><td><content ID="encounterDiagnosisID4-0">Taking Medication For Diabetes Long-term Use of Oral Hypoglycemics</content>, <content ID="encounterDiagnosisID4-1">Diabetes Mellitus Type 2 Without Complication</content>, <content ID="encounterDiagnosisID4-2">Cataract Senile Nuclear</content>, <content ID="encounterDiagnosisID4-3">Dry Eye Syndrome Both Eyes</content>, <content ID="encounterDiagnosisID4-4">Essential Hypertension</content>, <content ID="encounterDiagnosisID4-5">Vitreous Disorders Degeneration</content>, <content ID="encounterDiagnosisID4-6">History of Nicotine Dependence</content></td> Attender: Demertis Raymundo MD, MANAN Ware MD [facility] 06/22/2020 01:33:0 0 PM EST - 06/22/2020 03:03:00 PM EST History of Nicotine DependenceVitreous Disorders DegenerationEssential HypertensionDry Eye Syndrome Both EyesCataract Senile NuclearDiabetes Mellitus Type 2 Without ComplicationTaking Medication For Diabetes Long-term Use of Oral HypoglycemicsHistory of Nicotine DependenceVitreous Disorders DegenerationEssential HypertensionDry Eye Syndrome Both EyesCataract Senile NuclearDiabetes Mellitus Type 2 Without ComplicationTaking Medication For Diabetes Long-term Use of Oral Hypoglycemics [place] (Demetris Raymundo MD [facility]) History of Nicotine Dependence Vitreous Disorders Degeneration Essential Hypertension 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 06/09/2020 01:45:0 0 PM EDWes DOWNEY ([facility] Outpatient Attender: [facility] 05/20/2020 04:00:0 0 PM EDT MEDENT ([facility] 01:45:0 0 PM EDT MEDENT ([facility] 03/10/2020 01:00:0 0 PM EDT MEDENT ([facility] Outpatient Attender: Stephanie Manuel [facility] 02/10/2020 01:00:00 PM EDT MED[facility] ([facility] 11/19/2019 01:45:0 0 PM EDT MEDENT ([facility] 09/30/2019 10:00:0 0 AM EST MED[facility] ([facility] Immunizations Vaccine Date Status Description Data Source(s) New in 2012. IIV4 06/09/2020 01:56:00 PM EDT completed MED[facility] ([facility] Medications Medication Brand Name Start Date Product Form Dose Route Admi nistrative Instructions Pharmacy Instructions Status Indications Reaction Description Data Source(s) BromSite 0.075% Ophthalmic Solution BromSite 0.075% Ophthalm ic Solution 09/04/2020 12:00:00 AM EST active bromfenac 0.75 MG/ML Ophthalmic Solution [Bromsite] JOLENE (Demetris Raymundo MD [facility]) Inveltys 1% Ophthalmic Suspension Inveltys 1% Ophthalmic [place] pension 09/04/2020 12:00:00 AM EST active loteprednol etabonate 10 MG/ML Ophthalmic Suspension [Inveltys] JOLENE (Demetris Raymundo MD [facility]) moxifloxacin 5 MG/ML Ophthalmic Solution Moxifloxacin HCl 0.5% Ophthalmic Solution Moxifloxacin HCl 0.5% Ophthalmic Solution 09/04/2020 12:00:00 AM EST active moxifloxacin 5 MG/ML Oph thalmic Solution JOLENE (Demetris Raymundo MD [facility]) Cephalexin 500 MG Oral Capsule CEPHALEXIN 07/27/2020 12:00:00 AM EST capsule 21 TAKE ONE CAPSULE BY MOUTH THREE TIMES A DAY FOR 7 DAYS TAKE ONE CAPSULE BY MOUTH THREE TIMES A DAY FOR 7 DAYS SOLD: 07/27/2020 [facility] Lisinopril 40 MG Oral Tablet Lisinopril 40 MG Oral Tablet 12:00:00 AM EST 1 active lisinopril 40 MG Oral Tablet JOLENE (Demetris Raymundo MD [facility]) Metformin hydrochloride 500 MG Oral Tablet metFORMIN H Cl 500 MG Oral Tablet metFORMIN HCl 500 MG Oral Tablet 06/22/2020 12:00:00 AM EST 1 active metformin hydrochloride 500 MG Oral Tablet JOLENE (Jess Raymundo MD [facility]) Vitamin B12 500 MCG Oral Tablet Vitamin B12 500 MCG Oral Tab let 06/22/2020 12:00:00 AM EST 1 active Vitamin B12 JOLENE (Demetris Raymundo MD [facility]) Vitamin D3 1000 MG Oral Tablet Vitamin D3 1000 MG Oral Table t 06/22/2020 12:00:00 AM EST 1 active Vitamin D3 JOLENE (Demetris Raymundo MD [facility]) Pravastatin Sodium 10 MG Oral Tablet Pravastatin Sodium 10 M G Oral Tablet 06/22/2020 12:00:00 AM EST 1 active pravastatin sodium 10 MG Oral Tablet JOLENE (Demetris Raymundo MD [facility]) Aspirin 81 MG Delayed Release Oral Table t Adult Aspirin Regimen 81 MG Oral Tablet Delayed Release Adult Aspirin Regimen 81 MG Oral Tablet Delayed Releas e 06/22/2020 12:00:00 AM EST 1 active aspirin 81 MG Delayed Release Oral Tablet JOLENE (Demetris Raymundo MD [facility]) Atenolol 25 MG Oral Tablet Atenolol 25 MG Oral Tablet 2019 12:00:00 AM EST 1 active atenolol 25 MG Or al Tablet JOLENE (Demetris Raymundo MD [facility]) Cephalexin 500 MG Oral Capsule Cephalexin 05/20/2020 12:00:00 AM EDT ORAL completed MEDENT ([facility] Cephalexin 500 MG Oral Capsule CEPHALEXIN 05/20/2020 12:00:00 AM EDT capsule 30 TAKE ONE CAPSULE BY MOUTH THREE TIMES A DAY FOR 10 DAY S TAKE ONE CAPSULE BY MOUTH THREE TIMES A DAY FOR 10 DAYS SOLD: 05/20/2020 [facility] doxycycline hyclate 100 MG Oral Tablet Doxycycline Hyclate 1 12:00:00 AM EDT ORAL completed MED[facility] ([facility] Cephalexin 500 MG Oral Capsule [Keflex] Keflex 04/06/2020 12:00:0 0 AM EDT ORAL completed MEDENT ([facility] Pravastatin Sodium 10 MG Oral Tablet Pravastatin Sodium 12:00:00 AM EDT ORAL active MEDENT ([facility] Metformin hydrochloride 500 MG Oral Tablet Metformin HCL 02/04/2020 12:00:00 AM EDT ORAL active MED[facility] ([facility] valacyclovir 1000 MG Oral Tablet Valacyclovir HCL 11/19/2019 12:00: 00 AM EDT ORAL completed [facility] ([facility] Bacitracin 0.5 UNT/MG Topical Ointment Bacitracin Zinc 0 11/19/2019 12:00:00 AM EDT completed MEDENT ([facility] BLOOD SUGAR DIAGNOSTIC 10/29/2019 12:00:00 AM EDT strip 200 TEST TWICE DAILY TEST TWICE DAILY SOLD: 05/11/2020 [facility] BLOOD SUGAR DIAGNOSTIC 10/29/2019 12:00:00 AM EDT strip 200 TEST TWICE DAILY TEST TWICE DAILY SOLD: 08/11/2020 [facility] BLOOD SUGAR DIAGNOSTIC 10/29/2019 12:00:00 AM EDT strip 200 TEST TWICE DAILY TEST TWICE DAILY SOLD: 02/10/2020 [facility] BLOOD SUGAR DIAGNOSTIC 10/29/2019 12:00:00 AM EDT strip 200 TEST TWICE DAILY TEST TWICE DAILY SOLD: 11/03/2019 [facility] Rosuvastatin calcium 10 MG Oral Tablet Rosuvastatin Calcium 09/30/2019 12:00:00 AM EST ORAL completed MEDENT ([facility] BLOOD SUGAR DIAGNOSTIC 10/17/2018 12:00:00 AM EST strip 200 TEST TWICE DAILY TEST TWICE DAILY SOLD: 08/04/2019 [facility] Insurance Providers Payer name Policy type / Coverage type Policy ID Covered democrat ID Covered democrat's relationship to angela Policy Angela Plan Information AETNA MEDICARE [id number] SP [id number] [id number] PAY ONLY [id number] SP [id number] AETNA MEDICARE [id number] SP [id number] Aetna Other 0 Self 0 Aetna Other 0 Self 0 AETNA HEALTH SEIU HERRERA O [id number] S [id number] Aetna Medicare Medigap Part B [id number] Self [id number] Unitedhealthcare Commercial [id number] Self [id number] Aetna Medicare Medigap Part B [id number] Self [id number] MEDICARE COMPLETE [id number] SP [id number] AETNA MEDICARE -O/P [id number] UNHC COMMUNITY PLAN XIX [id number] 18 [id number] Aetna Commercial [id number] Self [id number] UNHC MEDICARE COMPLETE O/P [id number] 18 [id number] Aetna Medicare Medigap Part B [id number] Self [id number] [place] () Workers Compensation [id number] Self [id number] Aetna (MCR) Commercial [id number] Self [id number] [facility]/Medicare Medigap Part B [id number] Self [id number] [place] () Workers Compensation [id number] Self [id number] Aetna (MCR) Commercial [id number] Self [id number] Aetna (MCR) Medigap Part B [id number] Self [id number] [place] () Workers Compensation [id number] Self [id number] [facility]/Medicare Medigap Part B [id number] Self [id number] MEDICARE COMPLETE [id number] SP [id number] MEDICARE COMPLETE [id number] SP [id number] [facility] Communty Plan Medicaid [id number] Self [id number] [facility] COMMUNTY PLAN [id number] UNHC MEDICARE COMPLETE -PHYSICIAN [id number] 18 [id number] UNHC MEDICARE COMPLETE CLINIC [id number] 18 [id number] MEDICARE COMPLETE-UH O [id number] S [id number] [facility] Communty Plan Medicaid [id number] Self [id number] [facility] COMMUNTY PLAN [id number] 18 [id number] [employer] UNHC MEDICARE O/P [id number] 18 [id number] [place] [employer] Workers Compensation [id number] Self [id number] [employer] Commercial [id number] Self [id number] [place] [employer]. Workers Compensation [id number] Self [id number] [facility] O [id number] S [id number] UNITED HEALTHCARE O [id number] S [id number] [employer] UNHC MEDICARE-RECURRING [id number] 18 [id number] [employer] UN MEDICARE-RECURRING [id number] 18 [id number] UHC UNITED MEDICARE COMPLETE G [id number] Self [id number] [place]/[employer] [id number] [place] [employer] Workers Compensation [id number] Self [id number] [place] [employer]. Workers Compensation [id number] Self [id number] [place] Workers Compensation [id number] Self [id number] [place] [employer] O [id number] S [id number] [place] Workers Compensation [id number] Self [id number] [employer] O [id number] S [id number] [place] [id number] 18 [id number] [facility]-O/P [id number] 18 [id number] THE [place] O [id number] S [id number] [employer] Commercial [id number] Medicare PN Self [id number] Medicare PN [employer] UN MEDICARE -PHYSICIAN [id number] 18 [id number] [employer] [id number] S [id number] MEDICARE [id number] SP [id number] A [facility] [id number] SP [id number] MEDICARE [id number] SP [id number] A Problems, Conditions, and Diagnoses Code Display Name Description Problem Type Effective Dates Data Source(s) 364.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 Ad hesions of Iris Posterior Synechiae Problem 07/20/2020 12:00:00 AM EST JOLENE (Gregg Raymundo MD [facility]) 364.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 Ad hesions of Iris Posterior Synechiae Problem 07/20/2020 12:00:00 AM EST JOLENE (Gregg Raymundo MD [facility]) 379.21 Vitreous Disorders Degeneration Vitreous Disorders Deg eneration Problem 06/22/2020 12:00:00 AM EST JOLENE (Demetris Raymundo MD [facility]) [id number] 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 Problem 06/22/2020 12:00:00 AM EST JOLENE (Demetris Raymundo MD [facility]) 366.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 Cataract Senile Nuclear Proble m 06/22/2020 12:00:00 AM EST JOLENE (Demetris Raymundo MD [facility]) [id number] Retinopathy Hypertensive Both Eyes Retinopathy H ypertensive Both Eyes Problem 06/22/2020 12:00:00 AM EST JOLENE (Demetris mcfarlane MD [facility]) 401.9 Essential Hypertension Essential Hypertension Problem 06/22/2020 12:00:00 AM EST JOLENE (Demetris Raymundo MD [facility]) [id number] History of Nicotine Dependence History of Nicotine Dep endence Problem 06/22/2020 12:00:00 AM EST JOLENE (Demetris Raymundo MD [facility]) 250.00 Diabetes Mellitus Type 2 Without Complic ation Diabetes Mellitus Type 2 Without Complication Problem 06/22/2020 12:00:00 AM EST JOLENE (Cecilio Raymundo MD [facility]) Z79.84 Taking Medication For Diabetes Long-term Use of Oral Hypoglycemics Taking Medication For Diabetes Long-term Use of Oral Hypoglycemics Problem 06/22/2020 12:00:00 AM EST JOLENE (Demetris Raymundo MD [facility]) 379.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 Disorders Degeneration Vitreous Disorders Deg eneration Problem 06/22/2020 12:00:00 AM EST JOLENE (Demetris Raymundo MD [facility]) [id number] 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 Problem 06/22/2020 12:00:00 AM EST JOLENE (Demetris Raymundo MD [facility]) 366.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 Cataract Senile Nuclear Proble m 06/22/2020 12:00:00 AM EST JOLENE (Demetris Raymundo MD [facility]) 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 Retinopathy H ypertensive Both Eyes Problem 06/22/2020 12:00:00 AM EST JOLENE (Demetris mcfarlane MD [facility]) 401.9 Essential Hypertension Essential Hypertension Problem 06/22/2020 12:00:00 AM EST JOLENE (Demetris Raymundo MD [facility]) [id number] History of Nicotine Dependence History of Nicotine Dep endence Problem 06/22/2020 12:00:00 AM EST JOLENE (Demetris Raymundo MD [facility]) 250.00 Diabetes Mellitus Type 2 Without Complic ation Diabetes Mellitus Type 2 Without Complication Problem 06/22/2020 12:00:00 AM EST JOLENE (Cecilio Raymundo MD [facility]) Z79.84 Taking Medication For Diabetes Long-term Use of Oral Hypoglycemics Taking Medication For Diabetes Long-term Use of Oral Hypoglycemics Problem 06/22/2020 12:00:00 AM EST JOLENE (Demetris Raymundo MD [facility]) [id number] Type 2 diabetes mellitus Type 2 diabetes mellitus Prob amina 06/09/2020 12:00:00 AM EDT MEDENT ([facility] ) Surgeries/Procedures Procedure Description Date Indications Data Source(s) OPH BMTRY PRTL COHER INTRFRMTRY IO LENS PWR KENNEDI Ophtha lmic biometry - IOL Master with IOL calculation (RT, 26) 09/18/2020 12:00:00 AM EST GR EENWAY (Demetris Raymundo MD [facility]) OPH BMTRY PRTL COHER INTRFRMTRY IO LENS PWR KENNEDI Ophtha lmic biometry - IOL Master with IOL calculation (Left side, WAIVER OF LIABILITY ON FILE (ABN)) 09/04/2020 12:00:00 AM EST JOLENE (Demetris Raymundo MD [facility]) Intermediate Eye Exam Established Patient (Signi/Sep E roshan. & Man.) Intermediate Eye Exam Established Patient (Signi/Sep Eval. & Man.) 09/04/2020 12:00:00 AM EST JOLENE (Demetris Raymundo MD [facility]) Surgical / procedural history Termination 1984, Tubal Ligation 1984, Fatty Tumor removal 2017, Surgical / procedural history Termination 1984, Tubal Ligation 1984, Fatty Tumor removal 2018, 07/20/2020 12:00:00 AM EST JOLENE (Demetris Raymundo MD [facility]) Intermediate Eye Exam Established Patient Intermediate Eye Exam Established Patient 07/20/2020 12:00:00 AM EST JOLENE (Gregg Raymundo MD [facility]) Intermediate Eye Exam Established Patient Intermediate Eye Exam Established Patient 07/20/2020 12:00:00 AM EST JOLENE (Gregg Raymundo MD [facility]) Medical Eye Exam Medical Eye Exam 06/22/2020 12:00:00 AM EST JOLENE (Demetris Raymundo MD [facility]) Results ID Date Data Source [id number] 09/12/2020 08:30:00 AM EST [facility] Name Value Range Interpretation Code Description Data Tania rce(s) Supporting Document(s) SARS coronavirus 2 RNA Not Detected [facility] [place] This lab was ordered by [facility] and reported by [facility]. ID Date Data Source [id number] 09/08/2020 01:33:00 PM EST [facility] ([facility] Name Value Range Interpretation Code Description Data Tania rce(s) Supporting Document(s) pH of Urine by Test strip 5.5 5.0-7.5 [facility] ([facility] Specific gravity of Urine 1.021 1.005-1.030 [facility] ([facility] Appearance of Urine Laboratory test result [facility] ([facility] Color of Urine Laboratory test result [facility] ([facility] Glucose [Presence] in Urine Laboratory test result [facility] ([facility] Protein [Presence] in Urine by Test strip Laboratory test result [facility] ([facility] Leukocyte esterase [Presence] in Urine by Test strip Laboratory test result Abnormal (applies to non-numeric results) [facility] ([facility] Hemoglobin [Presence] in Urine by Test strip Laboratory test result [facility] ([facility] Ketones [Presence] in Urine by Test strip Laboratory test result [facility] ([facility] Bilirubin.total [Presence] in Urine by Test strip Laboratory test res ult [facility] ([facility] Urobilinogen [Mass/volume] in Urine by Test strip 0.2 mg/dL 0.2-1.0 [facility] ([facility] Nitrite, Urine Laboratory test result [facility] ([facility] Urinalysis microscopic panel - Urine sediment Laboratory test result [facility] ([facility] Leukocytes [#/area] in Urine sediment by Microscopy hi gh power field Laboratory test result 0-5 Abnormal (applies to non-numeric results) [facility] ([facility] Microscopic observation [Identifier] in Urine by Acid fast stain.Ziehl-Neelsen Laboratory test result [facility] ([facility] Erythrocytes [#/area] in Urine sediment by Microscopy high power field Laboratory test result 0-2 [facility] ([facility] Epithelial Cells (renal) Laboratory test result [facility] ([facility] Epithelial cells [#/area] in Urine sediment by Microsc opy high power field Laboratory test result 0-10 Abnormal (applies to non-numeric results) [facility] ([facility] Cast Type Laboratory test result ME DENT ([facility] Casts [Presence] in Urine sediment by Light microscopy Laborator y test result Abnormal (applies to non-numeric results) [facility] Crystal Type Laboratory test result [facility] ([facility] Mucus [Presence] in Urine sediment by Light microscopy Laborator y test result [facility] ([facility] ) Unidentified crystals [Presence] in Urine sediment by Light microscopy Laboratory test result [facility] ([facility] Bacteria [#/area] in Urine sediment by Microscopy high power field Laboratory test result [facility] ([facility] Yeast [#/area] in Urine sediment by Microscopy high po wer field Laboratory test result [facility] ([facility] Trichomonas vaginalis [Presence] in Urine sediment by Light microscopy Laboratory test result [facility] ([facility] Urine sediment comments by Light microscopy Narrative Laboratory test result [facility] ([facility] ) ID Date Data Source [id number] 09/08/2020 01:33:00 PM EST [facility] ([facility] Name Value Range Interpretation Code Description Data Tania rce(s) Supporting Document(s) Hemoglobin A1c/Hemoglobin.total in Blood 6.5 % 4.8-5.6 Above high normal [facility] ([facility] <content>Prediabetes: 5.7 - 6.4</content >
<content>Diabetes: >6.4</content>
<content>Glycemic control for adults with diabetes: <7.0</content>
<content></content> ID Date Data Source [id number] 09/08/2020 01:33:00 PM EST MED[facility] ([facility] Name Value Range Interpretation Code Description Data Tania rce(s) Supporting Document(s) Creatine kinase [Enzymatic activity/volume] in Serum or Plasma 44 U /L 32-182 [facility] ([facility] ID Date Data Source [id number] 09/08/2020 01:33:00 PM EST MED[facility] ([facility] Name Value Range Interpretation Code Description Data Tania rce(s) Supporting Document(s) Cholesterol [Mass/volume] in Serum or Plasma 241 mg/dL 100 -199 Above high normal [facility] ([facility] Triglyceride [Mass/volume] in Serum or Plasma 203 mg/dL 0-149 Above high normal [facility] ([facility] Laboratory test finding (navigational concept) 34 mg/dL 5-40 [facility] ([facility] Cholesterol in HDL [Mass/volume] in Serum or Plasma 92 mg/dL [facility] ([facility] Comment: Laboratory test result [facility] ([facility] Laboratory test finding (navigational concept) 115 mg/dL 0-99 Above high normal [facility] ([facility] ID Date Data Source [id number] 09/08/2020 01:33:00 PM EST [facility] ([facility] Name Value Range Interpretation Code Description Data Tania rce(s) Supporting Document(s) Glucose [Mass/volume] in Serum or Plasma 103 mg/dL 65-99 Above high normal [facility] ([facility] BUN 26 mg/dL 8-27 [facility] ([facility] Creatinine [Mass/volume] in Serum or Plasma 0.94 mg/dL 0.57-1.00 [facility] ([facility] eGFR If NonAfricn Am 60 mL/min/1.73 [facility] ([facility] Urea nitrogen/Creatinine [Mass Ratio] in Serum or Plasma 28 1 2-28 [facility] ([facility] eGFR If Africn Am 69 mL/min/1.73 MED ENT ([facility] Sodium [Moles/volume] in Serum or Plasma 139 mmol/L 134-144 [facility] ([facility] Potassium [Moles/volume] in Serum or Plasma 5.2 mmol/L 3.5-5.2 [facility] ([facility] Chloride [Moles/volume] in Serum or Plasma 102 mmol/L 96-106 [facility] ([facility] Carbon dioxide, total [Moles/volume] in Serum or Plasma 24 mmol/L 20 -29 [facility] ([facility] Calcium [Mass/volume] in Serum or Plasma 10.0 mg/dL 8.7-10.3 [facility] ([facility] Protein [Mass/volume] in Serum or Plasma 6.7 g/dL 6.0-8.5 [facility] ([facility] Albumin [Mass/volume] in Serum or Plasma 4.2 g/dL 3.7-4.7 [facility] ([facility] Globulin [Mass/volume] in Serum by calculation 2.5 g/dL 1.5-4.5 [facility] ([facility] Bilirubin.total [Mass/volume] in Serum or Plasma Laboratory test result 0.0-1.2 [facility] ([facility] ) Albumin/Globulin [Mass Ratio] in Serum or Plasma 1.7 1.2-2.2 [facility] ([facility] Alkaline phosphatase [Enzymatic activity/volume] in Serum or Plasma 69 IU/L 39-117 [facility] Aspartate aminotransferase [Enzymatic activity/volume] in Serum or Plasma 13 IU/L 0-40 [facility] ([facility] Alanine aminotransferase [Enzymatic activity/volume] in Seru m or Plasma 7 IU/L 0-32 [facility] ([facility] ID Date Data Source [id number] 09/08/2020 01:33:00 PM EST [facility] ([facility] Name Value Range Interpretation Code Description Data Tania rce(s) Supporting Document(s) Leukocytes [#/volume] in Blood by Automated count 7.5 x10E3/uL 3.4-10 .8 [facility] ([facility] Hematocrit [Volume Fraction] of Blood by Automated count 36.7 % 3 4.0-46.6 [facility] ([facility] Erythrocytes [#/volume] in Blood by Automated count 4.12 x10E6/uL 3.7 7-5.28 [facility] ([facility] Hemoglobin [Mass/volume] in Blood 12.3 g/dL 11.1-15.9 [facility] ([facility] Erythrocyte mean corpuscular volume [Entitic volume] by Auto mated count 89 fL 79-97 [facility] ([facility] Erythrocyte mean corpuscular hemoglobin [Entitic mass] by Automated count 29.9 pg 26.6-33.0 [facility] ([facility] Erythrocyte mean corpuscular hemoglobin concentration [Mass/volume] by Automated count 33.5 g/dL 31.5-35.7 [facility] ([facility] Erythrocyte distribution width [Ratio] by Automated count 12.5 % 11.7-15.4 [facility] ([facility] Platelets [#/volume] in Blood by Automated count 316 x10E3/uL 150-450 [facility] ([facility] Neutrophils 73 % [facility] ([facility] Monocytes/100 leukocytes in Blood by Automated count 6 % [facility] ([facility] Lymphs 20 % [facility] Eosinophils/100 leukocytes in Blood by Automated count 1 % [facility] ([facility] Basophils/100 leukocytes in Blood by Automated count 0 % [facility] ([facility] Immature cells [#/volume] in Blood Laboratory test result [facility] ([facility] Lymphocytes [#/volume] in Blood 1.5 x10E3/uL 0.7-3.1 [facility] ([facility] Neutrophils [#/volume] in Blood by Automated count 5.5 x10E3/uL 1.4-7 .0 [facility] ([facility] Monocytes [#/volume] in Blood 0.4 x10E3/uL 0.1-0.9 [facility] ([facility] Eosinophils [#/volume] in Blood by Automated count 0.1 x10E3/uL 0.0-0 .4 [facility] ([facility] Basophils [#/volume] in Blood by Automated count 0.0 x10E3/uL 0.0-0.2 [facility] ([facility] Nucleated erythrocytes/100 leukocytes [Ratio] in Blood by Automated count Laboratory [facility] Immature granulocytes [#/volume] in Blood by Automated count 0.0 x10E3/uL 0.0-0.1 [facility] ([facility] Immature granulocytes/100 leukocytes in Blood by Automated count 0 % [facility] ([facility] Morphology [Interpretation] in Blood Narrative Laboratory test result [facility] ([facility] ID Date Data Source [id number] 06/09/2020 02:18:00 PM EDT [facility] ([facility] Name Value Range Interpretation Code Description Data Tania rce(s) Supporting Document(s) Erythrocytes [#/volume] in Blood by Automated count 3.75 x10E6/u L 3.77-5.28 Below low normal [facility] ([facility] ) Hemoglobin [Mass/volume] in Blood 11.1 g/dL 11.1-15.9 [facility] ([facility] Leukocytes [#/volume] in Blood by Automated count 4.7 x10E3/uL 3.4-10 .8 [facility] ([facility] Erythrocyte mean corpuscular volume [Entitic volume] by Auto mated count 90 fL 79-97 [facility] Hematocrit [Volume Fraction] of Blood by Automated count 33.7 % 34.0-46.6 Below low normal [facility] ([facility] ) Erythrocyte mean corpuscular hemoglobin [Entitic mass] by Automated count 29.6 pg 26.6-33.0 [facility] ([facility] Erythrocyte distribution width [Ratio] by Automated count 12.0 % 11.7-15.4 [facility] ([facility] Erythrocyte mean corpuscular hemoglobin concentration [Mass/volume] by Automated count 32.9 g/dL 31.5-35.7 [facility] ([facility] Neutrophils 60 % [facility] ([facility] Platelets [#/volume] in Blood by Automated count 317 x10E3/uL 150-450 [facility] ([facility] Lymphs 31 % [facility] Monocytes/100 leukocytes in Blood by Automated count 7 % [facility] ([facility] Eosinophils/100 leukocytes in Blood by Automated count 1 % [facility] ([facility] Basophils/100 leukocytes in Blood by Automated count 1 % [facility] ([facility] Neutrophils [#/volume] in Blood by Automated count 2.8 x10E3/uL 1.4-7 .0 [facility] ([facility] Immature cells [#/volume] in Blood Laboratory test result [facility] ([facility] Lymphocytes [#/volume] in Blood 1.5 x10E3/uL 0.7-3.1 [facility] ([facility] Eosinophils [#/volume] in Blood by Automated count 0.0 x10E3/uL 0.0-0 .4 [facility] ([facility] Monocytes [#/volume] in Blood 0.4 x10E3/uL 0.1-0.9 [facility] ([facility] Basophils [#/volume] in Blood by Automated count 0.0 x10E3/uL 0.0-0.2 [facility] ([facility] Immature granulocytes/100 leukocytes in Blood by Automated count 0 % [facility] ([facility] Immature granulocytes [#/volume] in Blood by Automated count 0.0 x10E3/uL 0.0-0.1 [facility] ([facility] Morphology [Interpretation] in Blood Narrative Laboratory test result [facility] ([facility] Nucleated erythrocytes/100 leukocytes [Ratio] in Blood by Automated count Laboratory test result [facility] ID Date Data Source [id number] 06/09/2020 02:18:00 PM EDT [facility] ([facility] Name Value Range Interpretation Code Description Data Tania rce(s) Supporting Document(s) Hemoglobin A1c/Hemoglobin.total in Blood 6.3 % 4.8-5.6 Above high normal [facility] ([facility] <content>Prediabetes: 5.7 - 6.4</content >
<content>Diabetes: >6.4</content>
<content>Glycemic control for adults with diabetes: <7.0</content>
<content></content> ID Date Data Source [id number] 06/09/2020 02:18:00 PM EDT [facility] ([facility] Name Value Range Interpretation Code Description Data Tania rce(s) Supporting Document(s) Specific gravity of Urine 1.016 1.005-1.030 [facility] ([facility] pH of Urine by Test strip 5.5 5.0-7.5 [facility] ([facility] Appearance of Urine Laboratory test result [facility] ([facility] Color of Urine Laboratory test result [facility] ([facility] Protein [Presence] in Urine by Test strip Laboratory test result [facility] ([facility] Leukocyte esterase [Presence] in Urine by Test strip Laboratory karen t result [facility] ([facility] Glucose [Presence] in Urine Laboratory test result [facility] ([facility] Ketones [Presence] in Urine by Test strip Laboratory test result [facility] ([facility] Bilirubin.total [Presence] in Urine by Test strip Laboratory test res ult [facility] ([facility] Urobilinogen [Mass/volume] in Urine by Test strip 0.2 mg/dL 0.2-1.0 [facility] ([facility] Hemoglobin [Presence] in Urine by Test strip Laboratory test result [facility] ([facility] Urinalysis microscopic panel - Urine sediment Laboratory test result [facility] ([facility] Microscopic follows if indicated. Nitrite, Urine Laboratory test result [facility] ([facility] Leukocytes [#/area] in Urine sediment by Microscopy hi gh power field Laboratory test result 0-5 [facility] ([facility] Erythrocytes [#/area] in Urine sediment by Microscopy high power field Laboratory test result 0-2 [facility] ([facility] Microscopic observation [Identifier] in Urine by Acid fast stain.Ziehl-Neelsen Laboratory test result [facility] ([facility] Epithelial cells [#/area] in Urine sediment by Microsc opy high power field Laboratory test result 0-10 [facility] ([facility] Casts [Presence] in Urine sediment by Light microscopy Laborator y test result [facility] ([facility] Epithelial Cells (renal) Laboratory test result [facility] ([facility] Cast Type Laboratory test result ME DENT ([facility] Unidentified crystals [Presence] in Urine sediment by Light microscopy Laboratory test result [facility] ([facility] Bacteria [#/area] in Urine sediment by Microscopy high power field Laboratory test result [facility] ([facility] Crystal Type Laboratory test result [facility] ([facility] Mucus [Presence] in Urine sediment by Light microscopy Laborator y test result [facility] ([facility] ) Yeast [#/area] in Urine sediment by Microscopy high po wer field Laboratory test result [facility] ([facility] Trichomonas vaginalis [Presence] in Urine sediment by Light microscopy Laboratory test result [facility] ([facility] Urine sediment comments by Light microscopy Narrative Laboratory test result [facility] ([facility] ) ID Date Data Source [id number] 06/09/2020 02:18:00 PM EDT MED[facility] ([facility] Name Value Range Interpretation Code Description Data Tania rce(s) Supporting Document(s) Creatine kinase [Enzymatic activity/volume] in Serum or Plasma 58 U /L 32-182 [facility] ([facility] ID Date Data Source [id number] 06/09/2020 02:18:00 PM EDT [facility] ([facility] Name Value Range Interpretation Code Description Data Tania rce(s) Supporting Document(s) Cholesterol [Mass/volume] in Serum or Plasma 209 mg/dL 100 -199 Above high normal [facility] ([facility] ) Triglyceride [Mass/volume] in Serum or Plasma 87 mg/dL 0-149 [facility] ([facility] Cholesterol in HDL [Mass/volume] in Serum or Plasma 86 mg/dL [facility] ([facility] Laboratory test finding (navigational concept) 15 mg/dL 5-40 [facility] ([facility] Comment: Laboratory test result [facility] ([facility] Laboratory test finding (navigational concept) 108 mg/dL 0-99 Above high normal [facility] ([facility] [facility] ID Date Data Source [id number] 06/09/2020 02:18:00 PM EDT MEDENT ([facility] Name Value Range Interpretation Code Description Data Tania rce(s) Supporting Document(s) Glucose [Mass/volume] in Serum or Plasma 99 mg/dL 65-99 MED[facility] ([facility] BUN 15 mg/dL 8-27 MED[facility] ([facility]ending [facility] to [facility] eGFR If NonAfricn Am 92 mL/min/1.73 [facility] ([facility] Creatinine [Mass/volume] in Serum or Plasma 0.55 mg/dL 0.57 -1.00 Below low normal [facility] ([facility] eGFR If Africn Am 106 mL/min/1.73 ME DENT ([facility] Sodium [Moles/volume] in Serum or Plasma 141 mmol/L 134-144 [facility] ([facility] Urea nitrogen/Creatinine [Mass Ratio] in Serum or Plasma 27 1 2-28 [facility] ([facility] Chloride [Moles/volume] in Serum or Plasma 103 mmol/L 96-106 [facility] ([facility] Potassium [Moles/volume] in Serum or Plasma 4.4 mmol/L 3.5-5.2 [facility] ([facility] Carbon dioxide, total [Moles/volume] in Serum or Plasma 26 mmol/L 20 -29 [facility] ([facility] Albumin [Mass/volume] in Serum or Plasma 4.5 g/dL 3.7-4.7 [facility] ([facility] Calcium [Mass/volume] in Serum or Plasma 9.6 mg/dL 8.7-10.3 [facility] ([facility] Protein [Mass/volume] in Serum or Plasma 6.6 g/dL 6.0-8.5 [facility] ([facility] Globulin [Mass/volume] in Serum by calculation 2.1 g/dL 1.5-4.5 [facility] ([facility] Albumin/Globulin [Mass Ratio] in Serum or Plasma 2.1 1.2-2.2 [facility] ([facility] Aspartate aminotransferase [Enzymatic activity/volume] in Serum or Plasma 14 IU/L 0-40 [facility] ([facility] Bilirubin.total [Mass/volume] in Serum or Plasma 0.2 mg/dL 0.0-1.2 [facility] ([facility] Alkaline phosphatase [Enzymatic activity/volume] in Serum or Plasma 64 IU/L 39-117 [facility] Alanine aminotransferase [Enzymatic activity/volume] in Seru m or Plasma 9 IU/L 0-32 [facility] ([facility] ID Date Data Source [id number] 05/20/2020 03:56:00 PM EDT [facility] ([facility] Name Value Range Interpretation Code Description Data Tania rce(s) Supporting Document(s) Urine Culture, Routine Laboratory test result [facility] ([facility] SRC:VOIDED Bacteria identified in Urine by Culture Laboratory test result [facility] ([facility] SRC:VOIDED ID Date Data Source [id number] 05/20/2020 03:52:00 PM EDT [facility] ([facility] Name Value Range Interpretation Code Description Data Tania rce(s) Supporting Document(s) Color Laboratory test result MED[facility] ([facility] Glucose-Ua Laboratory test result ME DENT ([facility] Clarity Laboratory test result MED[facility] ([facility] Ketone Laboratory test result Abnormal (applies to non -numeric results) [facility] ([facility] Creatine kinase [Enzymatic activity/volume] in Serum or Plas ma 1.025 # 1.000-1.030 [facility] ([facility] Bilirubin,Urine Laboratory test result [facility] ([facility] pH 5.5 # 5.0-8.0 [facility] Blood - Ua Laboratory test result Abnormal (applies to non -numeric results) [facility] ([facility] Urobilinogen 0.2 NA 0.2-1.0 MED[facility] ([facility] Protein 30 mg/dL Abnormal (applies to non-numeric res ults) MED[facility] ([facility] Nitrite Laboratory test result [facility] ([facility] RBC-Ua Laboratory test result 0-3 Abnormal (applies to non -numeric results) [facility] ([facility] Leukocyte Laboratory test result Abnormal (applies to non -numeric results) [facility] ([facility] Bacteria - Ua Laboratory test result Abnormal (applies to non-numeric results) [facility] ([facility] ) WBC-Ua Laboratory test result 0-5 Abnormal (applies to non -numeric results) MED[facility] ([facility] Epithelial Cells - Ua Laboratory test result MED[facility] ([facility] Casts Laboratory test result [facility] ([facility] Comment Laboratory test result [facility] ([facility] ID Date Data Source [id number] 04/30/2020 01:55:00 PM EDT MED[facility] ([facility] Name Value Range Interpretation Code Description Data Tania rce(s) Supporting Document(s) Laboratory test finding (navigational concept) Laboratory test result MED[facility] ([facility] Test: COVID-19 Nasal/Naspharynx Result: NOT DETECTED Reference Units: Not detected Note: Please consider re-collection of a new specimen, if clinically indicated. Note: The COVID-19 assay has been FDA cleared by the U.S. Food and Drug Administration under the Emergency Use Authorization (EUA). [facility] is designated as a high complexity laboratory by the Clinical Laboratory Improvement Amendments of 1988 (CLIA) and is qualified to perform this test. ASSAY INFORMATION: Biez-Rglu-RWE. Patient samples for this assay have been pooled. All positive samples have been individually repeated for confirmation. The pooling protocol is pending FDA review. ID Date Data Source [id number] 04/30/2020 12:00:00 AM EDT [facility] Name Value Range Interpretation Code Description Data Tania rce(s) Supporting Document(s) 2019-nCoV RNA XXX GENO+probe-Imp [facility] This lab was ordered by [facility] and reported by [facility]. ID Date Data Source [id number] 04/06/2020 02:03:00 PM EDT [facility] ([facility] Name Value Range Interpretation Code Description Data Tania rce(s) Supporting Document(s) Bacteria identified in Urine by Culture Laboratory test result [facility] ([facility] SRC:UA VOIDED Urine Culture, Routine Laboratory test result [facility] ([facility] SRC:UA VOIDED ID Date Data Source [id number] 04/06/2020 01:34:00 PM EDT [facility] ([facility] Name Value Range Interpretation Code Description Data Tania rce(s) Supporting Document(s) Color Laboratory test result MED[facility] ([facility] Clarity Laboratory test result MED[facility] ([facility] Ketone Laboratory test result MED[facility] ([facility] Glucose-Ua Laboratory test result ME DENT ([facility] Bilirubin,Urine Laboratory test result Abnormal (applies to non-numeric results) [facility] ([facility] ) Creatine kinase [Enzymatic activity/volume] in Serum or Plas ma 1.010 # 1.000-1.030 [facility] ([facility] Blood - Ua Laboratory test result Abnormal (applies to non -numeric results) [facility] ([facility] pH 6.0 # 5.0-8.0 [facility] Urobilinogen 0.2 NA 0.2-1.0 MED[facility] ([facility] Protein 100 mg/dL Abnormal (applies to non-numeric res ults) MED[facility] ([facility] RBC-Ua Laboratory test result 0-3 Abnormal (applies to non -numeric results) [facility] ([facility] Leukocyte Laboratory test result Abnormal (applies to non -numeric results) [facility] ([facility] Nitrite Laboratory test result MED[facility] ([facility] Epithelial Cells - Ua Laboratory test result MED[facility] ([facility] Bacteria - Ua Laboratory test result Abnormal (applies to non-numeric results) [facility] ([facility] ) Crystals Laboratory test result MED[facility] ([facility] WBC-Ua Laboratory test result 0-5 Abnormal (applies to non -numeric results) [facility] ([facility] Comment Laboratory test result MED[facility] ([facility] ID Date Data Source [id number] 03/16/2020 12:00:00 AM EDT [facility] Aidan Fish DO Patient Name: RAYMOND [place]UNIOR[address] [place] [address] 3 Date of : 5[place] [id number] Date of Exam: 03/16/2020#: Fax: [phone] EXAM: MAMMO SCREENING WITH CADCLINICAL INFORMATION: Screening.Based on the personal and family history information your patient suppliedat the time of imaging, her lifetime risk of breast cancer estimated by theTyrer-Cuzick model is 2.7%. Given that this patient has less than 20% TCrisk score, no further medical management is currently recommended at thistime.Your patient's personal and/or family history of cancer submitted at thetime of imaging is suggestive of a hereditary cancer syndrome. She meetsthe criteria for genetic testing established by National ComprehensiveCancer Network and [place] [employer] guidelines. She should pursue arisk assessment with a hereditary cancer specialist which may includetesting based on these criteria. The benefits and limitations of genetictesting would be discussed, including potential changes to medicalmanagement based on the results. Your patient declined myRisk genetictesting at this time.Digital screening (2D) mammography was performed bilaterally in the CC andMLO projections. Additionally, breast tomosynthesis (3D mammography) wasperformed bilaterally in the CC and MLO projections. Today's exam wascompared to the prior exam(s).By history, the patient has no complaints of a palpable breast abnormalityor other significant breast complaints.The patient states last clinical breast exam was on 02/10/2020.The breasts are unchanged in size and shape. There are no agustin-soft tissuedensities or spicula veto masses. There is no internal architecturaldistortion. There are no suspicious agustin-calcific clusters. Skinthickening or nipple retraction is not present.The Volpara volumetric breast density category is B, there are scatteredareas of fibroglandular density.IMPRESSION:BI-RADS Category 1 - Negative Mammogram. Stable mammogram. There is noevidence of malignant alteration of the breasts. Followup examinationrecommended in one year.This mammogram was read with the assistance of musiXmatch, an FDAapproved computer aided detection system for mammography.Negative x-ray reports should not delay surgical consultation if a dominantor clinically suspicious mass is present.Not all breast cancers can be identified by mammography. Therefore, werecommend that you continue to perform regular breast self-examination andphysical examination and then promptly contact your physician of anyconcerns or changes.Adenosis and dense breasts may obscure an underlying neoplasm.MCKENZIE Greene/Nixon you for referring RAYMOND JUNIOR to our office. Electronically Signed - TRUDI ESQUIVEL DO 03/18/20 16:46 Name Value Range Interpretation Code Description Data [facility] Supporting Document(s) ID Date Data Source [id number] 03/10/2020 01:36:00 PM EDT [facility] ([facility] Name Value Range Interpretation Code Description Data Tania rce(s) Supporting Document(s) pH of Urine by Test strip 5.5 5.0-7.5 [facility] ([facility] Specific gravity of Urine 1.016 1.005-1.030 [facility] ([facility] Appearance of Urine Laboratory test result [facility] ([facility] Color of Urine Laboratory test result [facility] ([facility] Leukocyte esterase [Presence] in Urine by Test strip Laboratory karen t result MED[facility] ([facility] Protein [Presence] in Urine by Test strip Laboratory test result [facility] ([facility] Glucose [Presence] in Urine Laboratory test result [facility] ([facility] Bilirubin.total [Presence] in Urine by Test strip Laboratory test res ult [facility] ([facility] Ketones [Presence] in Urine by Test strip Laboratory test result [facility] ([facility] Hemoglobin [Presence] in Urine by Test strip Laboratory test result [facility] ([facility] Urinalysis microscopic panel - Urine sediment Laboratory test result [facility] ([facility] Microscopic follows if indicated. Urobilinogen [Mass/volume] in Urine by Test strip 0.2 mg/dL 0.2-1.0 [facility] ([facility] Nitrite, Urine Laboratory test result [facility] ([facility] Microscopic observation [Identifier] in Urine by Acid fast stain.Ziehl-Neelsen Laboratory test result [facility] ([facility] Leukocytes [#/area] in Urine sediment by Microscopy hi gh power field Laboratory test result 0-5 [facility] ([facility] Epithelial cells [#/area] in Urine sediment by Microsc opy high power field Laboratory test result 0-10 [facility] ([facility] Erythrocytes [#/area] in Urine sediment by Microscopy high power field Laboratory test result 0-2 [facility] ([facility] Epithelial Cells (renal) Laboratory test result [facility] ([facility] Unidentified crystals [Presence] in Urine sediment by Light microscopy Laboratory test result [facility] ([facility] Cast Type Laboratory test result ME DENT ([facility] Casts [Presence] in Urine sediment by Light microscopy Laborator y test result [facility] ([facility] ) Mucus [Presence] in Urine sediment by Light microscopy Laborator y test result [facility] ([facility] ) Bacteria [#/area] in Urine sediment by Microscopy high power field Laboratory test result [facility] ([facility] Crystal Type Laboratory test result [facility] ([facility] Trichomonas vaginalis [Presence] in Urine sediment by Light microscopy Laboratory test result [facility] ([facility] Yeast [#/area] in Urine sediment by Microscopy high po wer field Laboratory test result [facility] ([facility] Urine sediment comments by Light microscopy Narrative Laboratory test result [facility] ([facility] ) ID Date Data Source [id number] 03/10/2020 01:36:00 PM EDT [facility] ([facility] Name Value Range Interpretation Code Description Data Tania rce(s) Supporting Document(s) Hemoglobin A1c/Hemoglobin.total in Blood 6.4 % 4.8-5.6 Above high normal [facility] ([facility] <content>Prediabetes: 5.7 - 6.4</content >
<content>Diabetes: >6.4</content>
<content>Glycemic control for adults with diabetes: <7.0</content>
<content></content> ID Date Data Source [id number] 03/10/2020 01:36:00 PM EDT [facility] ([facility] Name Value Range Interpretation Code Description Data Tania rce(s) Supporting Document(s) Creatine kinase [Enzymatic activity/volume] in Serum or Plasma 45 U /L 32-182 [facility] ([facility] Please note reference interval change* * ID Date Data Source [id number] 03/10/2020 01:36:00 PM EDT [facility] ([facility] Name Value Range Interpretation Code Description Data Tania rce(s) Supporting Document(s) Triglyceride [Mass/volume] in Serum or Plasma 164 mg/dL 0-149 Above high normal [facility] ([facility] Cholesterol [Mass/volume] in Serum or Plasma 258 mg/dL 100 -199 Above high normal [facility] ([facility] ) Cholesterol in HDL [Mass/volume] in Serum or Plasma 83 mg/dL [facility] ([facility] Cholesterol in LDL [Mass/volume] in Serum or Plasma by calcu lation 142 mg/dL 0-99 Above high normal [facility] Cholesterol in VLDL [Mass/volume] in Serum or Plasma by calc ulation 33 mg/dL 5-40 [facility] ([facility] Comment: Laboratory test result [facility] ([facility] ID Date Data Source [id number] 03/10/2020 01:36:00 PM EDT MED[facility] ([facility] Name Value Range Interpretation Code Description Data Tania rce(s) Supporting Document(s) Glucose [Mass/volume] in Serum or Plasma 93 mg/dL 65-99 [facility] ([facility] Creatinine [Mass/volume] in Serum or Plasma 0.79 mg/dL 0.57-1.00 [facility] ([facility] BUN 19 mg/dL 8-27 MED[facility] ([facility] Urea nitrogen/Creatinine [Mass Ratio] in Serum or Plasma 24 1 2-28 [facility] ([facility] eGFR If NonAfricn Am 73 mL/min/1.73 [facility] ([facility] eGFR If Africn Am 85 mL/min/1.73 MED ENT ([facility] Sodium [Moles/volume] in Serum or Plasma 142 mmol/L 134-144 [facility] ([facility] Chloride [Moles/volume] in Serum or Plasma 104 mmol/L 96-106 [facility] ([facility] Potassium [Moles/volume] in Serum or Plasma 4.8 mmol/L 3.5-5.2 [facility] ([facility] Calcium [Mass/volume] in Serum or Plasma 9.3 mg/dL 8.7-10.3 [facility] ([facility] Protein [Mass/volume] in Serum or Plasma 6.6 g/dL 6.0-8.5 [facility] ([facility] Carbon dioxide, total [Moles/volume] in Serum or Plasma 23 mmol/L 20 -29 [facility] ([facility] Globulin [Mass/volume] in Serum by calculation 2.1 g/dL 1.5-4.5 [facility] ([facility] Albumin [Mass/volume] in Serum or Plasma 4.5 g/dL 3.7-4.7 [facility] ([facility] Albumin/Globulin [Mass Ratio] in Serum or Plasma 2.1 1.2-2.2 [facility] ([facility] Alkaline phosphatase [Enzymatic activity/volume] in Serum or Plasma 69 IU/L 39-117 [facility] ([facility] Aspartate aminotransferase [Enzymatic activity/volume] in Serum or Plasma 13 IU/L 0-40 [facility] ([facility]ane [facility] Bilirubin.total [Mass/volume] in Serum or Plasma Laboratory test result 0.0-1.2 [facility] ([facility] ) Alanine aminotransferase [Enzymatic activity/volume] in Seru m or Plasma 9 IU/L 0-32 [facility] ([facility] ID Date Data Source [id number] 03/10/2020 01:36:00 PM EDT MED[facility] ([facility] Name Value Range Interpretation Code Description Data Tania rce(s) Supporting Document(s) Leukocytes [#/volume] in Blood by Automated count 5.1 x10E3/uL 3.4-10 .8 [facility] ([facility] Erythrocytes [#/volume] in Blood by Automated count 3.72 x10E6/u L 3.77-5.28 Below low normal [facility] ([facility] ) Hemoglobin [Mass/volume] in Blood 11.5 g/dL 11.1-15.9 [facility] ([facility] Hematocrit [Volume Fraction] of Blood by Automated count 33.2 % 34.0-46.6 Below low normal [facility] ([facility] ) Erythrocyte mean corpuscular volume [Entitic volume] by Auto mated count 89 fL 79-97 [facility] ([facility] Erythrocyte mean corpuscular hemoglobin concentration [Mass/volume] by Automated count 34.6 g/dL 31.5-35.7 [facility] ([facility] A xochitl[facility] Erythrocyte mean corpuscular hemoglobin [Entitic mass] by Automated count 30.9 pg 26.6-33.0 [facility] ([facility] Asso felisha[facility] Neutrophils 62 % [facility] ([facility] Erythrocyte distribution width [Ratio] by Automated count 12.6 % 11.7-15.4 [facility] ([facility] Platelets [#/volume] in Blood by Automated count 297 x10E3/uL 150-450 [facility] ([facility] Monocytes/100 leukocytes in Blood by Automated count 10 % [facility] ([facility] Lymphs 26 % [facility] ([facility] Eosinophils/100 leukocytes in Blood by Automated count 1 % [facility] ([facility] Basophils/100 leukocytes in Blood by Automated count 1 % [facility] ([facility] Neutrophils [#/volume] in Blood by Automated count 3.2 x10E3/uL 1.4-7 .0 [facility] ([facility] Immature cells [#/volume] in Blood Laboratory test result [facility] ([facility] Eosinophils [#/volume] in Blood by Automated count 0.1 x10E3/uL 0.0-0 .4 [facility] ([facility] Monocytes [#/volume] in Blood 0.5 x10E3/uL 0.1-0.9 [facility] ([facility] Lymphocytes [#/volume] in Blood 1.4 x10E3/uL 0.7-3.1 [facility] ([facility] Immature granulocytes/100 leukocytes in Blood by Automated count 0 % [facility] ([facility] Basophils [#/volume] in Blood by Automated count 0.0 x10E3/uL 0.0-0.2 [facility] ([facility] Immature granulocytes [#/volume] in Blood by Automated count 0.0 x10E3/uL 0.0-0.1 MED[facility] ([facility] Mackenzie mcelroy PBongCBong) Nucleated erythrocytes/100 leukocytes [Ratio] in Blood by Automated count Laboratory test result [facility] Morphology [Interpretation] in Blood Narrative Laboratory test result [facility] ([facility] Radhika [facility].) ID Date Data Source [id number] 02/10/2020 01:36:00 PM EDT MEDCHRIS ([facility] Mackenzie Lechuga PRamy) Name Value Range Interpretation Code Description Data Tania rce(s) Supporting Document(s) Occult Blood Laboratory test result MED[facility] ([facility] Makenzie [facility]ays) ID Date Data Source [id number] 02/10/2020 01:36:00 PM EDT MEDCHRIS ([facility] Mackenzie Lechuga PRamy) Name Value Range Interpretation Code Description Data Tania rce(s) Supporting Document(s) Laboratory test finding (navigational concept) Laboratory test result MED[facility] ([facility] Mackenzie Lechuga PBongC.) Source.............Endocervix Dates / Re sults....LMP 40 YRS AGO No. of containers..01 ThinPrep Vial [id number] Pathology report final diagnosis Narrative Laboratory test result [facility] ([facility] Source.............Endocervix Dates / Re sults....LMP 40 YRS AGO No. of containers..01 ThinPrep Vial [id number] Statement of adequacy [Interpretation] o f Cervical or vaginal smear or scraping by Cyto stain Laboratory test result MEDE NT ([facility] Source.............Endocervix Dates / Re sults....LMP 40 YRS AGO No. of containers..01 ThinPrep Vial [id number] Laboratory test finding (navigational concept) Laboratory test result MEDENT ([facility] Source.............Endocervix Dates / Re sults....LMP 40 YRS AGO No. of containers..01 ThinPrep Vial [id number] [employer] Instructor who read Cyto stain of Cervical or vaginal smear or scraping Laboratory test result [facility] ([facility] Source.............Endocervix Dates / Re sults....LMP 40 YRS AGO No. of containers..01 ThinPrep Vial [id number] Microscopic observation [Identifier] in Unspecified sp ecimen by Other stain Laboratory test result [facility] ([facility] Source.............Endocervix Dates / Re sults....LMP 40 YRS AGO No. of containers..01 ThinPrep Vial [id number] Note: Laboratory test result MEDENT ([facility] Source.............Endocervix Dates / Re sults....LMP 40 YRS AGO No. of containers..01 ThinPrep Vial [id number] Cytology report of Cervical or vaginal smear or scrapi ng Cyto stain.thin prep Laboratory test result [facility] ([facility] Source.............Endocervix Dates / Re sults....LMP 40 YRS AGO No. of containers..01 ThinPrep Vial [id number] ID Date Data Source [id number] 01/22/2020 10:45:00 AM EDT [facility] Name Value Range Interpretation Code Description Data Tania rce(s) Supporting Document(s) SARS CORONAVIRUS 2 RNA [facility] This lab was ordered by [facility] and reported by [facility]. ID Date Data Source [id number] 01/22/2020 10:45:00 AM EDT [facility] ([facility] Name Value Range Interpretation Code Description Data Tania rce(s) Supporting Document(s) Laboratory test finding (navigational concept) Laboratory test result [facility] ([facility] This test was developed and its performa nce characteristics determined by [employer]. This test has not been FDA cleared or approved. This test has been authorized by FDA under an Emergency Use Authorization (EUA). This test is only authorized for the duration of time the declaration that circumstances exist justifying the authorization of the emergency use of in vitro diagnostic tests for detection of SARS-CoV-2 virus and/or diagnosis of COVID-19 infection under section 564(b)(1) of the Act, 21 U.S.C. 360bbb-3(b)(1), unless the authorization is terminated or revoked sooner. When diagnostic testing is negative, the possibility of a false negative result should be considered in the context of a patient's recent exposures and the presence of clinical signs and symptoms consistent with COVID-19. An individual without symptoms of COVID-19 and who is not shedding SARS-CoV-2 virus would expect to have a negative (not detected) result in this assay. Performed at: [address] [id number] Psychology Technician: Danisha Mathur MD, Phone: [phone] Not Detected ID Date Data Source [id number] 09/30/2019 11:56:00 AM EST [facility] ([facility] Name Value Range Interpretation Code Description Data Tania rce(s) Supporting Document(s) Specific gravity of Urine 1.009 1.005-1.030 [facility] ([facility] Microalbumin [Mass/volume] in Urine Laboratory test result [facility] ([facility] Appearance of Urine Laboratory test result [facility] ([facility] pH of Urine by Test strip 5.5 5.0-7.5 [facility] ([facility] Color of Urine Laboratory test result [facility] ([facility] Protein [Presence] in Urine by Test strip Laboratory test result [facility] ([facility] Leukocyte esterase [Presence] in Urine by Test strip Laboratory karen t result MED[facility] ([facility] Glucose [Presence] in Urine Laboratory test result [facility] ([facility] Ketones [Presence] in Urine by Test strip Laboratory test result [facility] ([facility] Bilirubin.total [Presence] in Urine by Test strip Laboratory test res ult [facility] ([facility] Urobilinogen [Mass/volume] in Urine by Test strip 0.2 mg/dL 0.2-1.0 [facility] ([facility] Hemoglobin [Presence] in Urine by Test strip Laboratory test result [facility] ([facility] Urinalysis microscopic panel - Urine sediment Laboratory test result [facility] ([facility] Microscopic follows if indicated. Nitrite, Urine Laboratory test result MED[facility] ([facility] Microscopic observation [Identifier] in Urine by Acid fast stain.Ziehl-Neelsen Laboratory test result [facility] ([facility] Leukocytes [#/area] in Urine sediment by Microscopy hi gh power field Laboratory test result 0-5 [facility] ([facility] Epithelial Cells (renal) Laboratory test result [facility] ([facility] Erythrocytes [#/area] in Urine sediment by Microscopy high power field Laboratory test result 0-2 [facility] ([facility] Epithelial cells [#/area] in Urine sediment by Microsc opy high power field Laboratory test result 0-10 [facility] ([facility] Cast Type Laboratory test result ME DENT ([facility] Crystal Type Laboratory test result [facility] ([facility] Casts [Presence] in Urine sediment by Light microscopy Laborator y test result MED[facility] ([facility] ) Unidentified crystals [Presence] in Urine sediment by Light microscopy Laboratory test result [facility] ([facility] Mucus [Presence] in Urine sediment by Light microscopy Laborator y test result MED[facility] ([facility] ) Yeast [#/area] in Urine sediment by Microscopy high po wer field Laboratory test result [facility] ([facility] Bacteria [#/area] in Urine sediment by Microscopy high power field Laboratory test result MED[facility] ([facility] Trichomonas vaginalis [Presence] in Urine sediment by Light microscopy Laboratory test result MED[facility] ([facility] Urine sediment comments by Light microscopy Narrative Laboratory test result MED[facility] ([facility] ) ID Date Data Source [id number] 09/30/2019 11:56:00 AM EST MEDENT ([facility] Name Value Range Interpretation Code Description Data Tania rce(s) Supporting Document(s) Hemoglobin A1c/Hemoglobin.total in Blood 6.5 % 4.8-5.6 Above high normal MED[facility] ([facility] <content>Prediabetes: 5.7 - 6.4</content >
<content>Diabetes: >6.4</content>
<content>Glycemic control for adults with diabetes: <7.0</content>
<content></content> ID Date Data Source [id number] 09/30/2019 11:56:00 AM EST MED[facility] ([facility] Name Value Range Interpretation Code Description Data Tania rce(s) Supporting Document(s) Creatine kinase [Enzymatic activity/volume] in Serum or Plasma 43 U /L 24-173 [facility] ([facility] ID Date Data Source [id number] 09/30/2019 11:56:00 AM EST MEDENT ([facility] Name Value Range Interpretation Code Description Data Tania rce(s) Supporting Document(s) Cholesterol [Mass/volume] in Serum or Plasma 250 mg/dL 100 -199 Above high normal [facility] ([facility] ) Triglyceride [Mass/volume] in Serum or Plasma 135 mg/dL 0-149 [facility] ([facility] Cholesterol in VLDL [Mass/volume] in Serum or Plasma by calc ulation 27 mg/dL 5-40 [facility] Cholesterol in LDL [Mass/volume] in Serum or Plasma by calcu lation 130 mg/dL 0-99 Above high normal [facility] ([facility] Cholesterol in HDL [Mass/volume] in Serum or Plasma 93 mg/dL [facility] ([facility] Comment: Laboratory test result [facility] ([facility] ID Date Data Source [id number] 09/30/2019 11:56:00 AM EST MED[facility] ([facility] Name Value Range Interpretation Code Description Data Tania rce(s) Supporting Document(s) Glucose [Mass/volume] in Serum or Plasma 99 mg/dL 65-99 [facility] ([facility] Creatinine [Mass/volume] in Serum or Plasma 0.66 mg/dL 0.57-1.00 [facility] ([facility] eGFR If NonAfricn Am 87 mL/min/1.73 [facility] ([facility] eGFR If Africn Am 101 mL/min/1.73 ME DENT ([facility] BUN 18 mg/dL 8-27 [facility] ([facility] Urea nitrogen/Creatinine [Mass Ratio] in Serum or Plasma 27 1 2-28 [facility] ([facility] Chloride [Moles/volume] in Serum or Plasma 103 mmol/L 96-106 [facility] ([facility] Sodium [Moles/volume] in Serum or Plasma 142 mmol/L 134-144 [facility] ([facility] Potassium [Moles/volume] in Serum or Plasma 4.7 mmol/L 3.5-5.2 [facility] ([facility] Carbon dioxide, total [Moles/volume] in Serum or Plasma 26 mmol/L 20 -29 [facility] ([facility] Protein [Mass/volume] in Serum or Plasma 7.0 g/dL 6.0-8.5 [facility] ([facility] Calcium [Mass/volume] in Serum or Plasma 9.6 mg/dL 8.7-10.3 [facility] ([facility] Albumin [Mass/volume] in Serum or Plasma 4.5 g/dL 3.7-4.7 [facility] ([facility] Please note reference interval change* * Globulin [Mass/volume] in Serum by calculation 2.5 g/dL 1.5-4.5 [facility] ([facility] Albumin/Globulin [Mass Ratio] in Serum or Plasma 1.8 1.2-2.2 [facility] ([facility] Bilirubin.total [Mass/volume] in Serum or Plasma 0.3 mg/dL 0.0-1.2 [facility] ([facility] Alkaline phosphatase [Enzymatic activity/volume] in Serum or Plasma 86 IU/L 39-117 [facility] Alanine aminotransferase [Enzymatic activity/volume] in Seru m or Plasma 11 IU/L 0-32 [facility] Aspartate aminotransferase [Enzymatic activity/volume] in Serum or Plasma 12 IU/L 0-40 [facility] ([facility] ID Date Data Source [id number] 09/30/2019 11:56:00 AM EST [facility] ([facility] Name Value Range Interpretation Code Description Data Tania rce(s) Supporting Document(s) Erythrocytes [#/volume] in Blood by Automated count 4.13 x10E6/uL 3.7 7-5.28 [facility] ([facility] Leukocytes [#/volume] in Blood by Automated count 4.6 x10E3/uL 3.4-10 .8 [facility] ([facility] Erythrocyte mean corpuscular volume [Entitic volume] by Auto mated count 87 fL 79-97 [facility] Erythrocyte mean corpuscular hemoglobin [Entitic mass] by Automated count 29.5 pg 26.6-33.0 [facility] Hematocrit [Volume Fraction] of Blood by Automated count 35.8 % 3 4.0-46.6 [facility] ([facility] Hemoglobin [Mass/volume] in Blood 12.2 g/dL 11.1-15.9 [facility] ([facility] Erythrocyte distribution width [Ratio] by Automated count 14.1 % 11.7-15.4 [facility] ([facility] Erythrocyte mean corpuscular hemoglobin concentration [Mass/volume] by Automated count 34.1 g/dL 31.5-35.7 [facility] ([facility] Platelets [#/volume] in Blood by Automated count 302 x10E3/uL 150-450 [facility] ([facility] Neutrophils 60 % [facility] ([facility] Lymphs 30 % [facility] ([facility] Monocytes/100 leukocytes in Blood by Automated count 8 % [facility] ([facility] Eosinophils/100 leukocytes in Blood by Automated count 2 % [facility] ([facility] Lymphocytes [#/volume] in Blood 1.4 x10E3/uL 0.7-3.1 [facility] ([facility] Immature cells [#/volume] in Blood Laboratory test result [facility] ([facility] Neutrophils [#/volume] in Blood by Automated count 2.7 x10E3/uL 1.4-7 .0 [facility] ([facility] Basophils/100 leukocytes in Blood by Automated count 0 % [facility] ([facility] Eosinophils [#/volume] in Blood by Automated count 0.1 x10E3/uL 0.0-0 .4 [facility] ([facility] Monocytes [#/volume] in Blood 0.4 x10E3/uL 0.1-0.9 [facility] ([facility] Basophils [#/volume] in Blood by Automated count 0.0 x10E3/uL 0.0-0.2 [facility] ([facility] Immature granulocytes [#/volume] in Blood by Automated count 0.0 x10E3/uL 0.0-0.1 [facility] ([facility] Morphology [Interpretation] in Blood Narrative Laboratory test result [facility] ([facility] Immature granulocytes/100 leukocytes in Blood by Automated count 0 % SHAYAN ([facility] Nucleated erythrocytes/100 leukocytes [Ratio] in Blood by Automated count Laboratory test result [facility] Procedure Social History Code Duration Value Status Description Data Source(s ) Smoking 07/20/2020 03:53:09 PM EST Ex-smoker (finding) complet ed Ex-smoker (finding) JOLENE (Demetris Raymundo MD [facility]) Smoking 06/09/2020 12:00:00 AM EDT Patient is a former smoker completed Patient is a former smoker MEDCHRIS ([facility] ) Vital Signs ID Date Data Source [id number] Name Value Range Interpretation Code Description Data Source(s) Oxygen saturation in Arterial blood by Pulse oximetry 97 % 97 % MEDCHRIS ([facility] Body mass index (BMI) [Ratio] 25.4 kg/m2 25.4 k g/m2 MEDCHRIS ([facility] [place] body weight 100 [lb_av] 100 [lb_av] MEDEN T ([facility] Body weight 130.00 [lb_av] 130.00 [lb_av] MEDEN T ([facility] Body height 60 [in_i] 60 [in_i] MEDCHRIS ([facility] 5'0" Respiratory rate 16 /min 16 /min MEDCHRIS ( [facility] Heart rate 76 /min 76 /min MEDCHRIS ([facility] Body temperature 98.0 [degF] 98.0 [degF] MEDCHRIS ([facility] Diastolic blood pressure 78 mm[Hg] 78 mm[Hg] MEDCHRIS ([facility] Systolic blood pressure 128 mm[Hg] 128 mm[Hg] M EDCHRIS ([facility] Oxygen saturation in Arterial blood by Pulse oximetry 98 % 98 % SHAYAN ([facility] Body mass index (BMI) [Ratio] 25.4 kg/m2 25.4 k g/m2 SHAYAN ([facility] [place] body weight 100 [lb_av] 100 [lb_av] MEDEN T ([facility] Body weight 130.00 [lb_av] 130.00 [lb_av] MEDEN T ([facility] Body height 60 [in_i] 60 [in_i] [facility] 5'0" Respiratory rate 16 /min 16 /min [facility] ( [facility] Heart rate 70 /min 70 /min [facility] ([facility] Body temperature 97.6 [degF] 97.6 [degF] [facility] ([facility] Diastolic blood pressure 76 mm[Hg] 76 mm[Hg] [facility] ([facility] Systolic blood pressure 128 mm[Hg] 128 mm[Hg] M EDENT ([facility] Oxygen saturation in Arterial blood by Pulse oximetry 99 % 99 % [facility] ([facility] Body mass index (BMI) [Ratio] 26.0 kg/m2 26.0 k g/m2 [facility] ([facility] [place] body weight 100 [lb_av] 100 [lb_av] MEDEN T ([facility] Body weight 133.00 [lb_av] 133.00 [lb_av] MEDEN T ([facility] Body height 60 [in_i] 60 [in_i] [facility] ([facility] 5'0" Respiratory rate 16 /min 16 /min [facility] ( [facility] Heart rate 76 /min 76 /min [facility] ([facility] Body temperature 97.3 [degF] 97.3 [degF] [facility] ([facility] Diastolic blood pressure 74 mm[Hg] 74 mm[Hg] [facility] ([facility] Systolic blood pressure 124 mm[Hg] 124 mm[Hg] M EDENT ([facility] Body height 60 [in_i] 60 [in_i] MED[facility] ([facility] 5'0" Respiratory rate 16 /min 16 /min MEDENT ( [facility] Heart rate 78 /min 78 /min MED[facility] ([facility] Body temperature 98.2 [degF] 98.2 [degF] MED[facility] ([facility] Diastolic blood pressure 78 mm[Hg] 78 mm[Hg] MED[facility] ([facility] Systolic blood pressure 108 mm[Hg] 108 mm[Hg] M EDENT ([facility] Oxygen saturation in Arterial blood by Pulse oximetry 99 % 99 % MED[facility] ([facility] Body mass index (BMI) [Ratio] 25.8 kg/m2 25.8 k g/m2 MED[facility] ([facility] York body weight 100 [lb_av] 100 [lb_av] MEDEN T ([facility] Body weight 132.00 [lb_av] 132.00 [lb_av] MEDEN T ([facility] Oxygen saturation in Arterial blood by Pulse oximetry 97 % 97 % MED[facility] ([facility] Body mass index (BMI) [Ratio] 26.0 kg/m2 26.0 k g/m2 MED[facility] ([facility] Body weight 133.00 [lb_av] 133.00 [lb_av] MEDEN T ([facility] Body height 60 [in_i] 60 [in_i] MEDENT ([facility] 5'0" Respiratory rate 16 /min 16 /min MEDENT ( [facility] Heart rate 86 /min 86 /min MED[facility] ([facility] Body temperature 96.7 [degF] 96.7 [degF] MED[facility] ([facility] Diastolic blood pressure 66 mm[Hg] 66 mm[Hg] MED[facility] ([facility] Systolic blood pressure 122 mm[Hg] 122 mm[Hg] M EDENT ([facility] Oxygen saturation in Arterial blood by Pulse oximetry 97 % 97 % [facility] ([facility] ([place] Rest), (Room Air) Body mass index (BMI) [Ratio] 25.4 kg/m2 25.4 k g/m2 [facility] ([facility] Body weight 130.00 [lb_av] 130.00 [lb_av] MEDEN T ([facility] Body height 60 [in_i] 60 [in_i] MED[facility] ([facility] 5'0" Respiratory rate 17 /min 17 /min MED[facility] ( [facility] Heart rate 68 /min 68 /min [facility] ([facility] Body temperature 99.5 [degF] 99.5 [degF] [facility] ([facility] Diastolic blood pressure 70 mm[Hg] 70 mm[Hg] MED[facility] ([facility] Systolic blood pressure 128 mm[Hg] 128 mm[Hg] M EDENT ([facility] Oxygen saturation in Arterial blood by Pulse oximetry 98 % 98 % [facility] ([facility] Body mass index (BMI) [Ratio] 25.6 kg/m2 25.6 k g/m2 [facility] ([facility] Body weight 131.00 [lb_av] 131.00 [lb_av] MEDEN T ([facility] Body height 60 [in_i] 60 [in_i] MEDENT ([facility] 5'0" Respiratory rate 14 /min 14 /min MED[facility] ( [facility] Heart rate 78 /min 78 /min [facility] ([facility] Body temperature 98.2 [degF] 98.2 [degF] [facility] ([facility] Diastolic blood pressure 68 mm[Hg] 68 mm[Hg] [facility] ([facility] Systolic blood pressure 138 mm[Hg] 138 mm[Hg] M EDENT ([facility] Oxygen saturation in Arterial blood by Pulse oximetry 97 % 97 % [facility] ([facility] (AT Rest), (Room Air) Body mass index (BMI) [Ratio] 25.6 kg/m2 25.6 k g/m2 [facility] ([facility] Body weight 131.00 [lb_av] 131.00 [lb_av] MEDEN T ([facility] Body height 60 [in_i] 60 [in_i] MED[facility] ([facility] 5'0" Respiratory rate 16 /min 16 /min MED[facility] ( [facility] Heart rate 72 /min 72 /min [facility] ([facility] Body temperature 97.7 [degF] 97.7 [degF] MED[facility] ([facility] Diastolic blood pressure 80 mm[Hg] 80 mm[Hg] ORACIOENT ([facility] Systolic blood pressure 146 mm[Hg] 146 mm[Hg] M EDCHRIS ([facility] Patient Treatment Plan of Care Planned Activity Planned Date Details Description Data Source (s) Inveltys 1% Ophthalmic Suspension 09/04/2020 12:00:00 AM EST JOLENE (Demetris Raymundo MD [facility]) BromSite 0.075% Ophthalmic Solution 09/04/2020 12:00:00 AM EST JOLENE (Demetris Raymundo MD [facility]) moxifloxacin 5 MG/ML Ophthalmic Solution 09/04/2020 12:00:00 AM EST JOLENE (Demetris Raymundo MD [facility])
[2020-09-24] MEDS ORDERED: BSS IRR 500ML/OMIDRIA 4ML IRR BAG (OR ONLY) As Ordered ONE (09:08)
[2020-09-24] MEDS ORDERED: ONDANSETRON 4MG/2ML VIAL As Ordered ONE (09:18)
[2020-09-24 09:50] VITALS: BP 141/61
[2020-09-24] MEDS ORDERED: TRIMETHOBENZAMIDE 300 MG CAP PO PRN (10:30)
--- NOTE | 2020-09-25 09:39 | RO ---
OPERATIVE NOTE DATE OF OPERATION: 09/24/2020 PREOPERATIVE DIAGNOSIS: 1. Visually significant nuclear sclerotic cataract, right eye. POSTOPERATIVE DIAGNOSIS: 1. Visually significant nuclear sclerotic cataract, right eye. PROCEDURE: 1. Cataract extraction with use of phacoemulsification, and placement of intraocular lens, AU00T0, 26.5 D, right eye. SURGEON: Christian Macdonald DO ANESTHESIA: Local (Omidria with MAC) COMPLICATIONS: None POSTOPERATIVE CONDITION: Stable INDICATIONS FOR SURGERY: 1. Blurred vision affecting patient's activities of daily living. DESCRIPTION OF PROCEDURE: The patient was seen in the preoperative area and properly identified. The correct operative eye was identified and marked. The patient received topical anesthetic, antibiotics, and topical dilating drops. The patient was then transferred to the operating room. The correct side was re-identified and a time-out was performed. The eye was prepped and draped in a sterile fashion. The eyelids were isolated with Tegaderm tape and the lids were held open with an adjustable speculum. A 1.0mm paracentesis incision was made. Omidria was then injected into the anterior chamber. Viscoelastic was then injected into the anterior chamber through the paracentesis. Using a 2.4mm sharp-tipped keratome, the anterior chamber was entered via a temporal clear cornea incision. A continuous curvilinear capsulorrhexis was created with Utrata forceps. Hydrodissection was performed with BSS on a blunt cannula until the nucleus was able to rotate freely. The crystalline lens was phacoemulsified and aspirated. Irrigation/aspiration was used to remove the cortical material Cohesive viscoelastic was placed into the capsular bag to deepen it. The implant was placed into the capsular bag and allowed to unfold. Placement was confirmed by visualizing the anterior capsulorrhexis. Irrigation/aspiration was used to remove the viscoelastic. The clear corneal incision was hydrated with BSS on a blunt cannula. The lens was well positioned. Intracameral antibiotic was injected into the anterior chamber. The incisions were then tested for leaks and found to be negative. The eye was then palpated for appropriate pressure and adjusted accordingly with BSS. The eyelid speculum was then carefully removed. A shield was placed over the eye. The patient tolerated the procedure well and was discharge to the recovery unit in a stable condition.
== END 2020-09-24 10:15 | disposition home or self-care (01) ==
LOC: M SDC 07:27
PROVIDERS: ATTEND Ophthalmology
DX: H25.11 Age-related nuclear cataract, right eye (principal); E11.9 Type 2 diabetes mellitus without complications; E78.5 Hyperlipidemia, unspecified; I10 Essential (primary) hypertension; Z86.73 Personal history of transient ischemic attack (TIA), and cerebral infarction without residual deficits; Z88.2 Allergy status to sulfonamides; Z88.1 Allergy status to other antibiotic agents; Z79.82 Long term (current) use of aspirin; Z79.84 Long term (current) use of oral hypoglycemic drugs
CPT/HCPCS: 66984; J1097; J2250; J2405; J3010; V2632

== ENCOUNTER 2022-07-25 18:13 | Emergency (ER) | payer MEDICARE ==
[~2022-07-25] VITALS: Ht 157.5 cm; Wt 55.9 kg
[~2022-07-25 18:13] MED LIST changes: -ACETAMINOPHEN 325 MG TAB PO PRN; -CEFUROXIME 1MG/0.1ML INTRACAMERAL INJ As Ordered ONE; -CLIN150C15 PO; +CLIN150C17 PO; -D31000TA2 PO; -DUOVISC (0.50ML VISCOAT/0.55ML PROVISC) OPHTH KIT As Ordered ONE; +LEVO1TAB40 PO; -LEVO750T13 PO; -LISI-898 PO; +LISI5TAB11 PO; -MIDAZOLAM INJ 2MG/2ML VIAL (J2250 PER 1MG) As Ordered ONE; -OFLOXACIN 0.3 % (OCUFLOX) OPTH SOL 5ML OD ONE; +OMEP-173 PO; -OMEP-218 PO; -PHENYLEPHRINE 2.5% OPHTH SOL 2ML OD ONE; -POVIDONE-IODINE 5% OPHTH PREP SOL 30ML As Ordered ONE; -PROPARACAINE 0.5% OPHTH SOL 15ML OD ONE; -PROPARACAINE 0.5% OPHTH SOL 15ML OD PRN; -TROPICAMIDE 1% OPHTH SOLN 2ML OD ONE; +VITA100093 PO; -fentaNYL 100 MCG/2 ML INJECTION (J3010) As Ordered ONE
[2022-07-26 00:37] VITALS: BP 167/100
[2022-07-26] MEDS ORDERED: valACYclovir HCL 500 MG TAB PO ONE (01:05)
[2022-07-26] MEDS ORDERED: VALA1TAB5 PO (01:16)
== END 2022-07-26 01:42 | disposition home or self-care (01) ==
LOC: M ED 18:13
DX: B02.8 Zoster with other complications (principal); S09.90XA Unspecified injury of head, initial encounter; W19.XXXA Unspecified fall, initial encounter; I10 Essential (primary) hypertension; E11.9 Type 2 diabetes mellitus without complications; Z87.891 Personal history of nicotine dependence; Z88.1 Allergy status to other antibiotic agents; Z88.2 Allergy status to sulfonamides; Z79.899 Other long term (current) drug therapy; Z79.82 Long term (current) use of aspirin

== ENCOUNTER → 2023-12-07 | Outpatient (CLI) | payer MEDICARE ==
[~2023-12-07] MED LIST changes: +VALA1TAB5 PO
[2023-12-07 11:58] LABS: BASO % 0.6 % (0.0-1.0); EOS # 0.1 10^3/uL (0.0-0.5); HEMATOCRIT 37.7 % (36.0-47.0); LYMPH # 1.5 10^3/uL (1.5-5.0); LYMPH % 23.3 % (24.0-44.0); MEAN CORPUSCULAR HEMOGLOBIN 30.4 pg (27.0-33.0); MEAN CORPUSCULAR HGB CONC 31.8 g/dl (32.0-36.5); MEAN CORPUSCULAR VOLUME 95.4 fl (80.0-96.0); MONO # 0.5 10^3/uL (0.0-0.8); MONO % 8.5 % (2.0-8.0); NEUTROPHILS # 4.1 10^3/uL (1.5-8.5); NEUTROPHILS % 65.3 % (36.0-66.0); PLATELET COUNT, AUTOMATED 250 10^3/uL (150-450); RED BLOOD COUNT 3.95 10^6/uL (4.00-5.40); WHITE BLOOD COUNT 6.4 10^3/uL (4.0-10.0)
== END ==
LOC: M WUC 09:39
PROVIDERS: ATTEND Family Medicine
DX: R05.1 Acute cough (principal); R06.02 Shortness of breath; R68.83 Chills (without fever)

== ENCOUNTER → 2024-11-26 | Outpatient (CLI) | payer MEDICARE ==
[~2024-11-26] MED LIST changes: -CRAN400C PO; +CRANBERRY400 MG PO
== END ==
LOC: M RAD 15:03
PROVIDERS: ATTEND Physician Assistant Medical
DX: R05.9 Cough, unspecified (principal)

== ENCOUNTER → 2024-11-26 | Outpatient (REF) | payer MEDICARE ==
[2024-11-26 20:13] LABS: RSV AMPLIFICATION NEGATIVE (NEGATIVE)
== END ==
LOC: M LAB REF 17:10
PROVIDERS: ATTEND Physician Assistant Medical
DX: J02.9 Acute pharyngitis, unspecified (principal)